=== PATIENT | male | born 1970 ===

== ENCOUNTER 2021-09-13 09:04 | Outpatient (CLI) | payer OTHER, SELFPAY ==
[2021-09-13 09:50] LABS: SARS-CoV-2 RNA PCR Positive (Negative)
== END 2021-09-13 09:05 | disposition home or self-care (01) ==
PROVIDERS: PCP Family Medicine; Visit Provider Nurse Practitioner Family
DX: U07.1 COVID-19 (principal)
CPT/HCPCS: C9803; U0003; U0005

== ENCOUNTER 2021-09-17 12:01 | Outpatient (CLI) | payer OTHER, SELFPAY ==
--- NOTE | 2021-09-17 12:15 | PC.NURSE ---
Pt to room 211 amb. A&Ox3. Regeneron infusion plan of care discussed. Pt read and signed consent form. Oriented to room. Call ho in reach. Reminded to call with needs.
[2021-09-17] MEDS: ACETAMINOPHEN 325 MG TABLET 650 MG PO (12:35)
[2021-09-17 12:36] VITALS: BP 133/88; PULSE 80; RESP 20; TEMP 37.7
[2021-09-17] MEDS: FAMOTIDINE 20 MG TABLET PO (12:36)
[2021-09-17] MEDS: diphenhydrAMINE HCl CAP 25 MG CAPSULE PO (12:36)
--- NOTE | 2021-09-17 14:07 | PC.NURSE ---
Pt has no questions or complaints. Discharged to home amb per self.
== END 2021-09-17 12:02 | disposition home or self-care (01) ==
PROVIDERS: PCP Nurse Practitioner Family; Visit Provider Nurse Practitioner Family
DX: U07.1 COVID-19 (principal)
CPT/HCPCS: A9270; J7050; M0243; Q0244

== ENCOUNTER 2024-04-28 13:00 | Outpatient (RCR) | payer OTHER, SELFPAY ==
--- NOTE | 2024-02-02 07:39 | OPREHPOC ---
Outpatient Therapy Plan of Care This is a Multidisciplinary Plan of Care that may contain components documented by all disciplines (PT, OT, and ST.) PT Problem 1 PT Problem #1 Knowledge Deficit PT Goal 1 Goal Patient to demonstrate independence with HEP Target Visit 4 PT Problem 2 PT Problem #2 Impaired Strength PT Goal 1 Goal Patient to demonstrate R hip and knee strength to 5/5 to improve ability to get up from low sitting surfaces Target Visit 8 PT Problem 3 PT Problem #3 Impaired Functional Mobil PT Goal 1 Goal 1. Patient to deny falls since start of PT POC 2. Patient to complete 5TSTS in <15 seconds to decrease fall risk 3. Patient to score 48/56 on Aly Balance to decrease fall risk 4. Patient to complete 6 min walk test with no seated rest and completion of 1200' Target Visit 8 OT Goal 1 Goal The patient will demonstrate 100% knowledge and return demonstration for UE and visual HEP in order to improve outcomes and function. Target Visit 10 OT Problem 2 OT Problem #2 Impaired Strength OT Goal 1 Goal The patient will demonstrate increased house nurse and pinch strength of R UE by demonstrating >10 lbs of lateral pinch strength and >70 lbs of R house nurse strength in order to improve accuracy with grooming tasks. Target Visit 10 OT Problem 3 OT Problem #3 Impaired Coordination OT Goal 1 Goal The patient will demonstrate increased fine motor coordination by completing 9-hole peg test using R UE in <70 seconds in order to manipulate objects for ADLs for maximum level of independence. Target Visit 10 OT Problem 4 OT Problem #4 Impaired Visual Perceptio OT Goal 1 Goal The patient will demonstrate decreased visual neglect and 100% understanding of use of compensation techniques in order to perform daily tasks safely and decrease risk of injury at home. Target Visit 10 OT Goal 2 Goal The patient will increase executive functioning by performing sample of [place] Making Test Part A in <30 seconds with <2 mistakes in order
--- NOTE | 2024-02-02 07:39 | PTOPEVAL1 ---
Assessment and note entered by Carmelina Godwin DPT Evaluation Information Assessment Status Evaluation Diagnosis impaired balance, R sided weakness Onset 12/14/23 Subjective Information Prior to the stroke on 12-14-23 the patient was working and had no major health concerns or problems. He began slurring his words and was speaking in nonsense words while at work and was sent to the hospital where they discovered a brain bleed. A craniectomy was completed on 12-16-23 and part of the skull was left off at that time. Glioblastoma was discovered and the patient is scheduled to begin radiation and chemo medication on 02-12-24. patient denies falls or pain. he is not using an AD. he was in [facility] rehab for 16 days and had all disciplines. he was able to ambulate and stand for up to 2 hours at a time. he reports some difficulty with getting up from low surfaces. his helps assist patient with providing subjective information. Reported Pain Level Pain Score 0: Self Report Pain Score 0: Self Report Pain Score 0: Self Report Assessment PT Clinical Summary Mr. Burr is a 53 year old male who presents to PT with decreased balance and R sided weakness following stroke and diagnosis of glioblastoma. He presents with decreased R LE strength, impaired balance and impaired gait mechanics impairing his ability to get up from low surfaces, ambulate on uneven surfaces and increases his fall risk with home tasks. He would benefit from skilled PT to address impairments and return to PLOF. Plan of Care Interventions Gait Training,Hot Pack/Cold Pack,Neuro Re- education,Patient/Caregiver Educati,Therapeutic Activities,Therapeutic Exercise PT Services Indicated Yes Treatment Frequency and 2x weekly for 8 visits Duration These treatments will address the objective and functional deficits as defined above. The patient will be advanced safely and appropriately in order for the patient to progress towards his/her prior level of function. Additional exercises will be introduced and as well as a comprehensive home exercise program upon discharge, if needed, ?to ensure carryover of functional gains achieved in the clinic. This treatment plan has been reviewed and agreement upon by the patient.
--- NOTE | 2024-02-02 15:29 | BUSTOPEVAL1 ---
Assessment and note entered by Radhika Hart, HELIOTHERAPIST Evaluation Information Assessment Status Evaluation Diagnosis C71.9 Malignant Neoplasm of brain Subjective Information Patient was referred for an ST evaluation due to concerns with severe Aphasia post CVA with craniectomy. The patient's reported that throughout the patient's hospital stay at [facility] and through rehab at [facility] she has continued to see improvements in his overall language skills. 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 The patient often comprehends spoken language at the more simple level but struggles to communicate verbally or through written means. He often presents with perseveration on previous words/sounds along with frequent jargon, neologisms, semantic and phonemic paraphasia's. He frequently gets frustrated when unable to communicate with his or other communication partners. Reported Pain Level Pain Score 0: Self Report Pain Score 0: Self Report Pain Score 0: Self Report Assessment ST Clinical Summary Patient was referred for an ST evaluation due to significant difficulties with speech after CVA (12-14-23) due to Glioblastoma with craniectomy on . Prior to health event patient was working and was independent with all daily tasks/events with no reported health problems. He participated in therapy while at [facility] and was then transferred to [facility] rehab and completed two weeks of therapy there. The patient's reported that she has seen improvements in the patient's language comprehension skills but he continues to struggle to communicate simple ideas/wants/needs with frequent frustration during communication breakdown. The Mini Mental State Examination MMSE was given with significant impact on results due to patient's aphasia with a score of 2/30. Through language testing patient presented with significant difficulty identifying body parts on self, following complex yes/no questions, following 2 step directions, reading comprehension skills at the single word level and 5-7+ word level, automatic speech tasks, single word and phrase repetition, along with confrontational naming. Currently
--- NOTE | 2024-02-02 15:51 | BUOTOPEVAL ---
Assessment and note entered by Claire Curry, OT Evaluation Information Assessment Status Evaluation Diagnosis Malignant neoplasm of brain, unspecified Onset 12/17/2023 Subjective Information The patient is experiencing expressive aphasia at this time, the patient's spouse assisted patient in answering questions during initial evaluation. They stated that the patient was at work having a normal day when he began to have stroke symptoms. He experienced a brain bleed and had craniotomy. The patient was diagnosed with glioblastoma and will begin chemotherapy and radiation in the beginning of February. He was in inpatient rehab for multiple weeks and has made significant improvement in function. They stated he can dress himself, use the bathroom and performs transfers independently. The patient's stated if he gets tired she will sometimes help with his shoes but he is independent mostly. He is unable to perform IADLs due to visual deficits and cognitive deficits. They stated that he is on anti-anxiety medication due to some episodes at night where he gets upset. The patient stated that he has children and they want to continue to participate in therapy to reach maximum level of independence. They stated that they wanted to work on R UE coordination and visual deficits. The patient stated, Yes, that he has a hard time with memory . Reported Pain Level Pain Score 0: Self Report Pain Score 0: Self Report Pain Score 0: Self Report Pain Score 0: Self Report Assessment OT Clinical Summary The patient is a 53 year old male who was referred to outpatient OT due to malignant neoplasm of brain where the patient required craniotomy, the patient wears a protective helmet at all times. The patient requires skilled OT to address fine motor coordination, visual neglect, and executive functioning needed to engage in meaningful activity, communicate with family, and engage in ADLs safely. The patient requires skilled OT to address deficits and increase independence and safety at home. Plan of Care Interventions Therapeutic Exercise,Neuro Re-education, Therapeutic Activities,Cognitive Function,Self- Care/Home Management OT Services Indicated Y
--- NOTE | 2024-02-18 13:20 | PCPTNOTE ---
Cancelled PT session this afternoon. Patient's reports he has another appointment.
--- NOTE | 2024-02-24 10:25 | PCPTNOTE ---
Cancelled session today. Patient's reports he did not sleep well last night, and is taking the day off of therapy.
--- NOTE | 2024-02-25 13:01 | PCSTNOTE ---
Patient's called and cancelled ST appointment this date due to patient experiencing extreme fatigue after chemo and radiation treatments.
--- NOTE | 2024-03-08 17:10 | PCPTNOTE ---
Patient called & cancelled scheduled appointment this date due to [other medical treatment today]
--- NOTE | 2024-03-11 14:07 | OPREHPOC ---
Outpatient Therapy Plan of Care This is a Multidisciplinary Plan of Care that may contain components documented by all disciplines (PT, OT, and ST.) PT Problem 1 PT Problem #1 Knowledge Deficit PT Goal 1 Goal Patient to demonstrate independence with HEP Target Visit 4 Progress Partially Met Comment continue PT Problem 2 PT Problem #2 Impaired Strength PT Goal 1 Goal Patient to demonstrate R hip and knee strength to 5/5 to improve ability to get up from low sitting surfaces Target Visit 8 Progress Partially Met Comment continue PT Problem 3 PT Problem #3 Impaired Functional Mobil PT Goal 1 Goal 1. Patient to deny falls since start of PT POC - met 2. Patient to complete 5TSTS in <15 seconds to decrease fall risk -met 3. Patient to score 48/56 on Aly Balance to decrease fall risk -not met 4. Patient to complete 6 min walk test with no seated rest and completion of 1200' -met Target Visit 8 Progress Partially Met Comment continue OT Problem 1 OT Problem #1 Knowledge Deficit OT Goal 1 Goal The patient will demonstrate 100% knowledge and return demonstration for UE and visual HEP in order to improve outcomes and function. Target Visit 10 OT Problem 2 OT Problem #2 Impaired Strength OT Goal 1 Goal The patient will demonstrate increased welder apprentice and pinch strength of R UE by demonstrating >10 lbs of lateral pinch strength and >70 lbs of R welder apprentice strength in order to improve accuracy with grooming tasks. Target Visit 10 OT Problem 3 OT Problem #3 Impaired Coordination OT Goal 1 Goal The patient will demonstrate increased fine motor coordination by completing 9-hole peg test using R UE in <70 seconds in order to manipulate objects for ADLs for maximum level of independence. Target Visit 10 OT Problem 4 OT Problem #4 Impaired Visual Perceptio
--- NOTE | 2024-03-11 14:07 | PTOPPROG ---
Assessment and note entered by Janet Sanford, PT Evaluation Information Assessment Status Progress Diagnosis impaired balance, R sided weakness Onset 12/14/23 Subjective Information Ariel denies pain and denies falls. He feels PT is helping him but he is still weak. Assessment PT Clinical Summary Ariel Burr has completed 10 skilled PT visits. He denies pain or falls since initiating PT. He does feel weak. He demonstrates improved balance and strength however he continues to have deficits in right LE strength, dynamic balance, and gait. He is still a moderate fall risk per standard balance tests. He will continue to benefit from skilled PT to further address these limitations. Plan of Care Interventions Gait Training,Neuro Re-education,Patient/Caregiver Educati,Therapeutic Activities,Therapeutic Exercise PT Services Indicated Yes Treatment Frequency and 2 times a week for 4 visits Duration These treatments will address the objective and functional deficits as defined above. The patient will be advanced safely and appropriately in order for the patient to progress towards his/her prior level of function. Additional exercises will be introduced and as well as a comprehensive home exercise program upon discharge, if needed, ?to ensure carryover of functional gains achieved in the clinic. This treatment plan has been reviewed and agreement upon by the patient.
--- NOTE | 2024-03-15 12:33 | BUSTOPEVAL1 ---
Assessment and note entered by Radhika Hart, MANAGER REGISTRATION Evaluation Information Assessment Status Progress Diagnosis C71.9 Malignant Neoplasm of brain Subjective Information Patient was referred for an ST evaluation due to concerns with severe Aphasia post CVA with craniectomy. The patient's reported that throughout the patient's hospital stay at [facility] and through rehab at [facility] she has continued to see improvements in his overall language skills. 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 The patient often comprehends spoken language at the more simple level but struggles to communicate verbally or through written means. He often presents with perseveration on previous words/sounds along with frequent jargon, neologisms, semantic and phonemic paraphasia's. He frequently gets frustrated when unable to communicate with his or other communication partners. The patient has completed a total of [address] treatment sessions with improvement noted in single syllable repetition, body part and item identification, yes/no questions, 2 step directions, single word comprehension skills and some automatic speech tasks. Reported Pain Level Pain Score 0: Self Report Pain Score 0: Self Report Pain Score 0: Self Report Pain Score 0: Self Report Pain Score 0: Self Report Pain Score 0: Self Report Pain Score 0: Self Report Pain Score 0: Self Report Pain Score 0: Self Report Pain Score 0: Self Report Pain Score 0: Self Report Pain Score 0: Self Report Pain Score 0: Self Report Pain Score 0: Self Report Pain Score 0: Self Report Pain Score 0: Self Report Pain Score 0: Self Report Pain Score 0: Self Report Pain Score 0: Self Report Pain Score 0: Self Report Pain Score 0: Self Report
--- NOTE | 2024-03-18 14:11 | PCPTNOTE ---
Patient cancelled scheduled appointment this date due to [not feeling well.]
--- NOTE | 2024-03-25 16:54 | PCPTNOTE ---
I reviewed the License Pending Therapist's documentation and agree with the findings.
--- NOTE | 2024-03-30 16:36 | PCPTNOTE ---
I reviewed the License Pending Therapist's documentation and agree with the findings.
--- NOTE | 2024-03-31 17:11 | PCPTNOTE ---
I reviewed the License Pending Therapist's documentation and agree with the findings. -Janet Sanford, PT
--- NOTE | 2024-04-04 16:08 | PCPTNOTE ---
On 04/04/24, the license pending INSTALLATION TECHNICIAN, [May Downs ], provided care and completed [facility] documentation on this patient. I have reviewed the license pending INSTALLATION TECHNICIAN's documentation and agree with the findings.
--- NOTE | 2024-04-07 15:25 | BUOTOPEVAL ---
Assessment and note entered by Claire Curry, OT Evaluation Information Assessment Status Progress - Pt Not Present Diagnosis Malignant neoplasm of brain, unspecified Onset 12/17/2023 Subjective Information . Reported Pain Level Pain Score 0: Self Report Pain Score 0: Self Report Pain Score 0: Self Report Pain Score 0: Self Report Pain Score 0: Self Report Pain Score 0: Self Report Pain Score 0: Self Report Pain Score 0: Self Report Pain Score 0: Self Report Pain Score 0: Self Report Pain Score 0: Self Report Pain Score 0: Self Report Pain Score 0: Self Report Pain Score 0: Self Report Pain Score 0: Self Report Pain Score 0: Self Report Pain Score 0: Self Report Pain Score 0: Self Report Pain Score 0: Self Report Pain Score 0: Self Report Pain Score 0: Self Report Pain Score 0: Self Report Pain Score 0: Self Report Pain Score 0: Self Report Pain Score 0: Self Report Pain Score 0: Self Report Pain Score 0: Self Report Pain Score 0: Self Report Pain Score 0: Self Report Pain Score 0: Self Report Pain Score 0: Self Report Pain Score 0: Self Report Pain Score 0: Self Report Pain Score 0: Self Report Pain Score 0: Self Report Pain Score 0: Self Report Pain Score 0: Self Report Pain Score 0: Self Report Pain Score 0: Self Report Pain Score 0: Self Report Pain Score 0: Self Report Assessment OT Clinical Summary Th
--- NOTE | 2024-04-11 11:33 | PCSTNOTE ---
Patient's appointment was cancelled this date due to insurance denial to cover more visits. Seeking out advice regarding whether or not patient can be treated through self pay or other options.
--- NOTE | 2024-04-19 15:55 | PCSTNOTE ---
Appointment cancelled for this date due to paying out of pocket and limited length of time for session. Patient is scheduled to be seen next week. Activities sent home for the patient to target.
--- NOTE | 2024-04-21 10:47 | PCPTNOTE ---
Patient called & cancelled scheduled appointment this date due to [patient not feeling well]
--- NOTE | 2024-05-05 12:35 | PCSTNOTE ---
This treatment is being continued on visit number [id number]. Please see documentation on both accounts to view progress. Completed interventions, outcomes, and problems have been marked as Inactive to facilitate the copying of the Care plan routine for recurring accounts.
== END 2024-04-28 20:00 | disposition still patient (30) ==
LOC: CHSST 13:00
PROVIDERS: PCP Family Medicine; Visit Provider Family Medicine
DX: C71.9 Malignant neoplasm of brain, unspecified (principal)
CPT/HCPCS: 92507; 92523; 96125; 97110; 97112; 97129; 97130; 97162; 97167; 97530; 97750

== ENCOUNTER 2024-05-28 12:50 | Emergency (ER) | payer OTHER, SELFPAY ==
--- NOTE | ~2024-05-28 | CT_ITS ---
EXAMINATION: CT brain wo con DATE: 05/28/2024 13:51 INDICATION: Retro-orbital orbital headache, left for one day. Glioblastoma. TECHNIQUE: Computed tomography (CT) of the head was performed without intravenous contrast. The mA wa s adjusted according to patient size. Iterative reconstruction technique was employed. Exam dose: 68 1.00 mGy-cm total exam DLP. COMPARISON: None available FINDINGS: Status post left craniotomy, with underlying likely postsurgical encephalomalacia and ex va cuo dilatation of the left lateral ventricle and left occipital horn. Residual or recurrent malignancy is not definitively excluded on this limited noncontrast examination . MRI of the brain would be more optimal for such purpose. No obvious intracranial mass lesion or hemorrhage or midline shift or mass effect is evident given th e previous discussion of limitation of this noncontrast examination. No subdural or epidural hematoma is evident. No orbital mass lesion is evident. There is soft tissue opacification of posterior ethmoid air cells bilaterally, but the included paran nitin sinuses and mastoids air cells are otherwise unremarkable. No fracture or bone destruction of the cranial vault is evident. Left craniotomy bone flap is secured by plates and screws. IMPRESSION: Status post left craniotomy; left encephalomalacia likely related to resection of prior reported glioblastoma. Residual or recurrent malignancy is not definitively excluded on this limited noncontrast examination No acute intracranial finding is noted Reviewed, dictated and finalized at [facility]. Reviewed, dictated and finalized at [facility]. IMPRESSION: Status post left craniotomy; left encephalomalacia likely related to resection of prior reported glioblastoma. Residual or recurrent malignancy is not definitively excluded on this limited n oncontrast examination No acute intracranial finding is noted
[2024-05-28 12:52] VITALS: BP 119/84; PULSE 64; RESP 22; TEMP 36.2; O2SAT 97
[2024-05-28 13:47] LABS: Basophils Absolute Auto 0.03 K/mm3 (0.00-0.10); Basophils Percent Auto 0.4 % (0.0-1.0); Eosinophils Absolute Auto 0.05 K/mm3 (0.02-0.50); Eosinophils Percent Auto 0.7 % (1.0-6.0); Hemoglobin 14.6 g/dL (14.0-18.0); Immature Granulocyte Absolute 0.03 K/mm3 (0.00-0.00); Immature Granulocyte Percent A 0.4 % (0.0-0.0); Lymphocytes Absolute Auto 1.09 K/mm3 (1.10-4.50); Lymphocytes Percent Auto 15.8 % (18.0-42.0); Mean Corpuscular HGB Conc 32.4 g/dL (32-36); Mean Corpuscular Hemoglobin 27.3 pg (27.0-31.0); Mean Corpuscular Volume 84.3 fL (78.0-102.0); Mean Platelet Volume 9.1 fl (8.7-11.0); Monocytes Absolute Auto 0.39 K/mm3 (0.10-0.90); Monocytes Percent Auto 5.7 % (2.0-11.0); Neutrophils Absolute Auto 5.29 K/mm3 (1.70-7.20); Platelet Count Result 247 K/mm3 (150-420); Red Blood Count 5.34 M/mm3 (4.70-6.10); Red Cell Distribution Width 14.7 % (11.6-14.4); White Blood Count 6.9 K/mm3 (4.8-10.8)
[2024-05-28 14:03] LABS: Alanine Aminotransferase 17 U/L (16-63); Albumin Level 3.7 g/dL (3.4-5.0); Alkaline Phosphatase 96 U/L (46-116); Anion Gap 12 mmol/L (4-12); Aspartate Amino Transferase 19 U/L (15-37); Bilirubin,Total 0.5 mg/dL (0.00-1.00); Blood Urea Nitrogen 12 mg/dL (7-18); Calcium 9.1 mg/dL (8.5-10.1); Carbon Dioxide 25 mmol/L (21-32); Chloride 101 mmol/L (98-108); Estimated CRCL calculation 165 ml/min; Estimated Glomerular Filt Rate > 60; Glucose 103 mg/dL (70-99); Osmolality Calculated 285 mOsm/kg (285-295); Potassium 3.5 mmol/L (3.5-5.1); Sodium 138 mmol/L (136-145); Total Protein 7.5 g/dL (6.4-8.2)
--- NOTE | 2024-05-28 14:29 | ED.HA ---
HPI - Headache General Chief Complaint: Headache Stated Complaint: pain behind LF. 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 He is receiving chemo and radiation. Recent scans were reported to not show any signs of residual disease. Patient presents the emergency department with a history of worsening left-sided headache behind his left eye. The symptoms have been worse over the past 48 hours and refractory to Tylenol at home [place]. Patient is presenting with his with concern that there was an acute intracranial process in play. Patient has aphasia and apraxia at baseline now. He has mild right upper extremity deficits at baseline. Reports mild decrease in p.o. intake past 48 hours. Remainder of ROS was negative for fever, chills, nausea, vomiting, vision changes, chest pain, sob, abdominal pain, bladder, or bowel habits. Related Data Home Medications Medication Instructions Recorded Confirmed Lactobacillus acidophilus 1 tablet PO DAILY 01/26/24 04/12/24 (Acidophilus chewable tablet) ondansetron 8 mg disintegrating 8 mg PO Q8H 02/10/24 04/12/24 tablet alprazolam 1 mg tablet 0.5 mg PO BID PRN anxiety 05/28/24 levetiracetam 750 mg tablet 1,500 mg PO BID 05/28/24 Allergies Allergy/AdvReac Type Severity Reaction Status Date / Time apixaban [From Eliquis] AdvReac Severe Headaches Verified 02/10/24 07:33 [facility] Past Medical History Medical History Overweight Surgical History Surgical History No history of previous surgery Social History Social History Smoking status: Never smoker Alcohol intake: current Drinks per week: 3 Substance use: never Living arrangements: with family Additional living arrangements comments: . 2 Children. Occupation/Education: occupation Additional occupation/education comments: Employed at [employer]. Exam Narrative: GEN: Awake, alert. Aphasia. No apparent distress. HEENT: No rhinorrhea noted, mucous membranes moist. No scleral icterus or conjunctival injection. CV: Normal rate, regular rhythm, S1S2 no M/G/R. 2+ distal pulses all extremities. No peripheral edema noted. PULM: Non-labored respiration. Clear to auscultation bilaterally. No wheezes, rales, rhonchi. GI: Abdomen soft, non -tender to palpation. No rigidity, distention or guarding.? NEURO: Slow gait. Aphasic and apraxic. Well-healed craniotomy scar on the left. Movement deficits on the right upper extremity. Course Vital Signs Vital signs: Vital Signs Temperature 36.2 C L 05/28/24 12:52 Pulse Rate 64 05/28/24 12:52 Respiratory Rate 22 H 05/28/24 12:52 Blood Pressure 119/84 05/28/24 12:52 Pulse Oximetry 97 05/28/24 12:52 Oxygen Delivery Room Air 05/28/24 12:52 Temperature 36.2 C L 05/28/24 12:52 Pulse Rate 64 05/28/24 12:52 Respiratory Rate 22 H 05/28/24 12:52 Blood Pressure 119/84 05/28/24 12:52 Pulse Oximetry 97 05/28/24 12:52 Oxygen Delivery Room Air 05/28/24 12:52 MDM - Headache MDM Narrative Medical decision making narrative: Patient was placed in Room #:?2 Independent Historian: Patient's External Source Review: medical records Differential diagnosis includes but not limited to:? chronic neurologic deficits verses acute intracranial process including bleed or infection. Medications: Home medications Independently Interpreted by me: labs Medications, treatment, ED course: lab work and monitoring Social situation impacting patients care: lives with his who is his primary caregiver Shared decision making:? discussed results of the CT scan with the patient and his . Discussed th
[2024-05-28 14:55] VITALS: BP 107/79; PULSE 95; RESP 20; TEMP 36.7; O2SAT 98
== END 2024-05-28 14:59 | disposition home or self-care (01) ==
PROVIDERS: Emergency Provider Family Medicine; PCP Family Medicine
DX: R51.9 Headache, unspecified (principal); Z86.73 Personal history of transient ischemic attack (TIA), and cerebral infarction without residual deficits
CPT/HCPCS: 36415; 70450; 80053; 85025; 99284

== ENCOUNTER 2024-08-18 11:00 | Outpatient (RCR) | payer OTHER, SELFPAY ==
--- NOTE | 2024-05-31 14:51 | STOPPROG ---
Addendum entered by EDDI Lopez 06/20/24 12:13: report was completed on 05/23/2024 Original Note: Assessment and note entered by EDDI Lopez Evaluation Information Assessment Status Progress Diagnosis C71.9 Malignant Neoplasm of brain Onset 12-14-23 Subjective Information Patient was referred for an ST evaluation due to concerns with severe Aphasia post CVA with craniectomy with 9 sessions completed since the previous progress report written on 03-15-24. The patient recently had a cranioplasty to replace skull that was removed during craniectomy which was completed on 05-02-24. The patient was not seen for skilled ST treatment for 3 weeks due to recovering from cranioplasty. 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 The patient often comprehends spoken language at the more simple level but struggles to communicate verbally or through written means. He often presents with perseveration on previous words/sounds along with frequent jargon, neologisms, semantic and phonemic paraphasia's. He frequently gets frustrated when unable to communicate with his or other communication partners. Assessment ST Clinical Summary Patient was referred for an ST evaluation due to significant difficulties with speech after CVA (12-14-23) due to Glioblastoma with craniectomy on and cranioplasty to replace skulls on 05-02-24. Prior to health event patient was working and was independent with all daily tasks/events with no reported health problems. He had no difficulty with speech/language skills and completed all tasks related to communication independently. He participated in therapy while at [facility] and was then transferred to [facility] rehab and completed two weeks of therapy there. The patient underwent chemo and radiation treatment and will completed the 6 weeks of treatment in the middle of March. The patient's daughter reported that she has seen improvements in the patient's language comprehension skills but he continues to struggle to communicate simple ideas/wants/needs with frequent frustration due to communication breakdown. The patient has completed a total of 9 skilled speech therapy session since the previous progress report written on 03-15-24. Testing was completed throughout the session this date and patient presented with improvements in various areas of auditory comprehension, reading comprehension and verbal expression along with increased difficulties in some areas. These increased difficulties could be due to recent surgery on 05-02-24. Through testing this date the patient has shown improvements in moderate and complex yes/no questions, 2 step directions, simple paragraph retention, single word reading comprehension, automatic cued speech, open ended cued speech, along with an improvement in speaking at the simple level through cues for current topic being discussed. The patient continues to show difficulty in body part identification, 3 step directions, complex directives, moderate/ complex paragraph retention, reading comprehension at the 3-4, 5-7 and 8-10 word level, automatic speech, single word repetition, along with phrase and sentence repetition, confrontational naming, sentence formation and divergent naming which all impact the patient's ability to communicate overall safety/health concerns, want/needs/ideas without extensive assistance resulting in frequent frustration with communication breakdowns. The patient often comprehends spoken language at the more simple level but struggles to communicate verbally or through written means. He often presents with perseveration on previous words/ sounds along with frequent jargon, neologisms, semantic and phonemic paraphasia's. This impacts the patient's overall quality of life greatly along with a severe impact on the patient's ability to communicate wants/needs/ideas and medical information/feelings. Recommendation for skilled ST treatment to continue to target aphasia R47.01 as a result from C71.9 and I63.[address] to target expressive and receptive language skills, and auditory comprehension skills to improve his ability to communicate and attempt to return to prior level of function with least amount of assistance. Recommendation for ST 1x/week for 10 sessions. Plan of Care Interventions Treatment of Speech,Treatment of Language, Treatment for Cognitive F ST Services Indicated Yes Treatment Frequency and 1x/week for 10 sessions Duration These treatments will address the objective and functional deficits as defined above. The patient will be advanced safely and appropriately in order for the patient to progress towards his/her prior level of function. Additional exercises will be introduced and as well as a comprehensive home exercise program upon discharge, if needed, ?to ensure carryover of functional gains achieved in the clinic. This treatment plan has been reviewed and agreement upon by the patient.
== END 2024-08-21 23:59 | disposition home or self-care (01) ==
LOC: CHSST 11:00
PROVIDERS: PCP Family Medicine; Visit Provider Family Medicine
DX: C71.9 Malignant neoplasm of brain, unspecified (principal); I69.320 Aphasia following cerebral infarction
CPT/HCPCS: 92507; 97110

== ENCOUNTER 2024-09-01 10:47 | Outpatient (RCR) | payer OTHER, SELFPAY | END 2024-11-30 23:59 | disposition home or self-care (01) | LOC: CHSST 10:47 | PROVIDERS: PCP Family Medicine; Visit Provider Family Medicine | DX: C71.9 Malignant neoplasm of brain, unspecified (principal) | CPT/HCPCS: 99199 ==

== ENCOUNTER 2024-09-15 10:45 | Outpatient (RCR) | payer OTHER, SELFPAY ==
--- NOTE | 2024-05-05 12:36 | PCSTNOTE ---
The treatment documented on this account is a continuation of the treatment documented on visit number [id number]. Please see documentation on both accounts to view progress. The Plan of Care has been transitioned and updated within the new A#. I have addressed and agree with the discipline specific Problems, Interventions, and Goals for the current certification period. Completed interventions, outcomes, and problems have been marked as Inactive to facilitate the copying of the Care plan routine for recurring accounts.
--- NOTE | 2024-05-23 12:53 | STOPPROG ---
Addendum entered by EDDI Lopez 06/20/24 12:15: ?note was entered in error on the incorrect account.? ? Original Note: Assessment and note entered by EDDI Lopez Evaluation Information Assessment Status Progress Diagnosis C71.9 Malignant Neoplasm of brain Onset 12-14-23 Subjective Information Patient was referred for an ST evaluation due to concerns with severe Aphasia post CVA with craniectomy with 9 sessions completed since the previous progress report written on 03-15-24. The patient recently had a cranioplasty to replace skull that was removed during craniectomy which was completed on 05-02-24. The patient was not seen for skilled ST treatment for 3 weeks due to recovering from cranioplasty. 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 The patient often comprehends spoken language at the more simple level but struggles to communicate verbally or through written means. He often presents with perseveration on previous words/sounds along with frequent jargon, neologisms, semantic and phonemic paraphasia's. He frequently gets frustrated when unable to communicate with his or other communication partners. Assessment ST Clinical Summary Patient was referred for an ST evaluation due to significant difficulties with speech after CVA (12-14-23) due to Glioblastoma with craniectomy on and cranioplasty to replace skulls on 05-02-24. Prior to health event patient was working and was independent with all daily tasks/events with no reported health problems. He had no difficulty with speech/language skills and completed all tasks related to communication independently. He participated in therapy while at [facility] and was then transferred to [facility] rehab and completed two weeks of therapy there. The patient underwent chemo and radiation treatment and will completed the 6 weeks of treatment in the middle of March. The patient's daughter reported that she has seen improvements in the patient's language comprehension skills but he continues to struggle to communicate simple ideas/wants/needs with frequent frustration due to communication breakdown. The patient has completed a total of 9 skilled speech therapy session since the previous progress report written on 03-15-24. Testing was completed throughout the session this date and patient presented with improvements in various areas of auditory comprehension, reading comprehension and verbal expression along with increased difficulties in some areas. These increased difficulties could be due to recent surgery on 05-02-24. Through testing this date the patient has shown improvements in moderate and complex yes/no questions, 2 step directions, simple paragraph retention, single word reading comprehension, automatic cued speech, open ended cued speech, along with an improvement in speaking at the simple level through cues for current topic being discussed. The patient continues to show difficulty in body part identification, 3 step directions, complex directives, moderate/ complex paragraph retention, reading comprehension at the 3-4, 5-7 and 8-10 word level, automatic speech, single word repetition, along with phrase and sentence repetition, confrontational naming, sentence formation and divergent naming which all impact the patient's ability to communicate overall safety/health concerns, want/needs/ideas without extensive assistance resulting in frequent frustration with communication breakdowns. The patient often comprehends spoken language at the more simple level but struggles to communicate verbally or through written means. He often presents with perseveration on previous words/ sounds along with frequent jargon, neologisms, semantic and phonemic paraphasia's. This impacts the patient's overall quality of life greatly along with a severe impact on the patient's ability to communicate wants/needs/ideas and medical information/feelings. Recommendation for skilled ST treatment to continue to target aphasia R47.01 as a result from C71.9 and I63.9 CVA[address] Recommendation for ST to target expressive and receptive language skills, and auditory comprehension skills to improve his ability to communicate and attempt to return to prior level of function with least amount of assistance. Recommendation for ST 1x/week for 10 sessions. Plan of Care Interventions Treatment of Speech,Treatment of Language, Treatment for Cognitive F ST Services Indicated Yes Treatment Frequency and 1x/week for 10 sessions Duration These treatments will address the objective and functional deficits as defined above. The patient will be advanced safely and appropriately in order for the patient to progress towards his/her prior level of function. Additional exercises will be introduced and as well as a comprehensive home exercise program upon discharge, if needed, ?to ensure carryover of functional gains achieved in the clinic. This treatment plan has been reviewed and agreement upon by the patient.
--- NOTE | 2024-06-14 16:38 | PCSTNOTE ---
Patient cancelled skilled ST session today due to taking several medications including his chemo medication and this impacted his mental abilities. He was extremely fatigued and unbalanced when he arrived for treatment. decided to cancel due to patient status.
--- NOTE | 2024-07-28 11:36 | PCSTNOTE ---
Patient called & cancelled scheduled appointment this date due to recent chemo round completion and feeling bad as a result.
--- NOTE | 2024-08-11 12:58 | PCSTNOTE ---
Patient called & cancelled scheduled appointment this date due to continued fatigue from recent chemo treatment.
--- NOTE | 2024-08-23 18:38 | STOPPROG ---
Assessment and note entered by Radhika Hart, BUSINESS INFORMATION ANALYST Evaluation Information Assessment Status Progress - Pt Not Present Diagnosis C71.9 Malignant Neoplasm of brain Onset 12-14-23 Subjective Information Patient was referred for an ST evaluation due to concerns with severe Aphasia post CVA with craniectomy. The patient's reported that throughout the patient's hospital stay at [facility] and through rehab at [facility] she has continued to see improvements in his overall language skills. 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 The patient often comprehends spoken language at the more simple level but struggles to communicate verbally or through written means. He often presents with perseveration on previous words/sounds along with frequent jargon, neologisms, semantic and phonemic paraphasia's. He frequently gets frustrated when unable to communicate with his or other communication partners. The patient has completed a total of [address] treatment sessions since the previous progress report written on 05-23-24 with improvement noted in complex yes/no questions , reading comprehension at the 7+ word level through two visual choices, item naming with cues (phonemic cues for carrier phrases), and word imitation. Within the past month the patient has began the use of a cap for treatment of cancer along with chemo medication recently that has impacted his ability to participate due to extreme fatigue. Assessment ST Clinical Summary Patient was referred for an ST evaluation due to significant difficulties with speech after CVA (12-14-23) due to Glioblastoma with craniectomy on . Prior to health event patient was working and was independent with all daily tasks/events with no reported health problems. He had no difficulty with speech/language skills and completed all tasks related to communication independently. He participated in therapy while at [facility] and was then transferred to [facility] rehab and completed two weeks of therapy there. The patient completed chemo and radiation treatment in the middle of March of 2024. The patient began use of a cap to treat cancer that he wears continuously and also has recently went through a round of chemo medication that has impacted his overall level of energy and ability to participate. The patient's reported that she has seen improvements in the patient's language comprehension skills but he continues to struggle to communicate simple ideas/wants/needs with frequent frustration during communication breakdown. The patient has completed a total of 9 skilled speech therapy session since the previous progress report written on 05-23-24. The patient has demonstrated improvements in item identification, answering yes/no questions at moderate/complex level difficulty, following two step directions, 5-7 word comprehension skills, item naming through use of phonemic cues and carrier phrases, automatic cued speech, and imitation at the simple phrase level. Over the past 3 months the patient has participated in use of various language apps frequently throughout the week to continue to target language skills. The patient continues to demonstrate significant difficulty using words to communicate resulting in frequent frustration with communication breakdowns. This impacts the patient's overall quality of life greatly along with a severe impact on the patient's ability to communicate wants/ needs/ideas and medical information/feelings. Recommendation for skilled ST treatment to continue to target aphasia R47.01, Apraxia of speech R48.2, as a result from C71.9 and I63.9 CVA . Recommendation for ST to target expressive and receptive language skills, apraxia of speech, and auditory comprehension skills to improve his ability to communicate and attempt to return to prior level of function with least amount of assistance. Recommendation for ST 1x/week for 10 sessions. Plan of Care Interventions Treatment of Speech,Treatment of Language, Treatment for Cognitive F ST Services Indicated Yes Treatment Frequency and 1x/week for 10 sessions Duration These treatments will address the objective and functional deficits as defined above. The patient will be advanced safely and appropriately in order for the patient to progress towards his/her prior level of function. Additional exercises will be introduced and as well as a comprehensive home exercise program upon discharge, if needed, ?to ensure carryover of functional gains achieved in the clinic. This treatment plan has been reviewed and agreement upon by the patient.
--- NOTE | 2024-09-06 12:20 | PCSTNOTE ---
Patient's called & cancelled scheduled appointment this date due to patient being extremely fatigued due to medication taken.
--- NOTE | 2024-09-20 08:59 | PCSTNOTE ---
This treatment is being continued on visit number [id number]. Please see documentation on both accounts to view progress. Completed interventions, outcomes, and problems have been marked as Inactive to facilitate the copying of the Care plan routine for recurring accounts.
== END 2024-09-19 23:59 | disposition home or self-care (01) ==
LOC: CHSST 10:45
PROVIDERS: PCP Family Medicine; Visit Provider Family Medicine
DX: C71.9 Malignant neoplasm of brain, unspecified (principal)
CPT/HCPCS: 92507

== ENCOUNTER 2024-10-07 10:45 | Outpatient (RCR) | payer OTHER, SELFPAY ==
--- NOTE | 2024-09-20 09:02 | PCSTNOTE ---
The treatment documented on this account is a continuation of the treatment documented on visit number [id number]. Please see documentation on both accounts to view progress. The Plan of Care has been transitioned and updated within the new A#. I have addressed and agree with the discipline specific Problems, Interventions, and Goals for the current certification period. Completed interventions, outcomes, and problems have been marked as Inactive to facilitate the copying of the Care plan routine for recurring accounts.
--- NOTE | 2024-10-14 11:40 | PCSTNOTE ---
Patient's called & cancelled scheduled appointment this date due to patient being extremely fatigued due to recent chemo medication. Patient is scheduled to be seen next .
--- NOTE | 2024-10-20 13:43 | PCSTNOTE ---
This treatment is being continued on visit number [id number]. Please see documentation on both accounts to view progress. Completed interventions, outcomes, and problems have been marked as Inactive to facilitate the copying of the Care plan routine for recurring accounts. Patient was recently seen for speech therapy through self pay due to insurance unable to continue covering costs. Patient now will be seen through new number due to new insurance with ST services covered.
== END 2024-10-20 12:13 | disposition still patient (30) ==
LOC: CHSST 10:45
PROVIDERS: PCP Family Medicine; Visit Provider Family Medicine
DX: C71.9 Malignant neoplasm of brain, unspecified (principal)
CPT/HCPCS: 92507

== ENCOUNTER 2025-01-05 10:45 | Outpatient (RCR) | payer OTHER, SELFPAY ==
--- NOTE | 2024-10-20 13:49 | PCSTNOTE ---
The treatment documented on this account is a continuation of the treatment documented on visit number [id number]. Please see documentation on both accounts to view progress. The Plan of Care has been transitioned and updated within the new A#. I have addressed and agree with the discipline specific Problems, Interventions, and Goals for the current certification period. Completed interventions, outcomes, and problems have been marked as Inactive to facilitate the copying of the Care plan routine for recurring accounts. Patient was recently seen for speech therapy through self pay due to insurance unable to continue covering costs and these sessions were documented on number [id number]. Patient now will be seen through this current number due to new insurance with ST services covered.
--- NOTE | 2024-11-17 12:53 | STOPPROG ---
Assessment and note entered by Radhika Hart, WHEEL TRUER Evaluation Information Assessment Status Progress Diagnosis C71.9 Malignant Neoplasm of brain Onset 12-14-23 Subjective Information Patient was referred for an ST evaluation due to concerns with severe Aphasia post CVA with craniectomy. The patient's reported that throughout the patient's hospital stay at [facility] [place] and through rehab at [facility] she has continued to see improvements in his overall language skills. 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 The patient often comprehends spoken language at the more simple level but struggles to communicate verbally or through written means. He often presents with perseveration on previous words/sounds along with frequent jargon, neologisms, semantic and phonemic paraphasia's. He frequently gets frustrated when unable to communicate with his or other communication partners. Over the course of the past several months the patient has been utilizing an application called Aphasia Therapy in his iPad at home with noted improvements. The patient has completed a total of [address] treatment sessions since the previous progress report written on 08-23-24. Goals recently have been met for moderate/complex yes/no questions, following two step directions and visual scanning tasks to improve visual spatial skills. Improvements over the past few sessions have been noted in item naming with less cues, reading comprehension skills, open ended cued speech and simple phrase imitation skills. Patient continues to struggle to produce words and phrases independently with continued breakdown in communication skills with familiar and unfamiliar listeners. Recommendation for continued skilled ST treatment at this time. Assessment ST Clinical Summary Patient was referred for an ST evaluation due to significant difficulties with speech after CVA (12-14-23) due to Glioblastoma with craniectomy on . Prior to health event patient was working and was independent with all daily tasks/events with no reported health problems. He had no difficulty with speech/language skills and completed all tasks related to communication independently. He participated in therapy while at [facility] and was then transferred to [facility] rehab and completed two weeks of therapy there. The patient completed chemo and radiation treatment in the middle of March of 2024. The patient began use of a cap to treat cancer that he wears continuously and also has recently went through a round of chemo medication that has impacted his overall level of energy and ability to participate intermittently. The patient's reported that she has seen improvements in the patient's language comprehension skills but he continues to struggle to communicate simple ideas/wants/needs with frequent frustration during communication breakdown. The patient has completed a total of 10 skilled speech therapy session since the previous progress report written on 08-23-24. The patient has met goals for auditory comprehension skills within answering complex yes/no questions and following two step directions. The patient also met goal for visual spatial skills through visual scanning. Through language testing the patient has shown improvements in; areas of verbal expression including single word imitation, automatic cued speech, wh questions, and confrontational naming along with areas of reading comprehension including number recognition and 3-4 word comprehension skills. Over the past several months the patient has participated in use of Aphasia Therapy application on iPad daily to continue to target overall language skills. The patient continues to demonstrate significant difficulty using words to communicate resulting in frequent frustration with communication breakdowns. This impacts the patient's overall quality of life greatly along with a severe impact on the patient' s ability to communicate wants/needs/ideas and medical information/feelings. Recommendation for skilled ST treatment to continue to target aphasia R47.01, Apraxia of speech R48.2, as a result from C71.9 and I63.9 CVA[address] Recommendation for ST to target expressive and receptive language skills, apraxia of speech, and auditory comprehension skills to improve his ability to communicate and attempt to return to prior level of function with least amount of assistance. Recommendation for ST 1x/week for 10 sessions. Plan of Care Interventions Treatment of Speech,Treatment of Language, Treatment for Cognitive Function ST Services Indicated Yes Treatment Frequency and 1x/week for 10 sessions Duration These treatments will address the objective and functional deficits as defined above. The patient will be advanced safely and appropriately in order for the patient to progress towards his/her prior level of function. Additional exercises will be introduced and as well as a comprehensive home exercise program upon discharge, if needed, ?to ensure carryover of functional gains achieved in the clinic. This treatment plan has been reviewed and agreement upon by the patient.
--- NOTE | 2024-11-22 07:55 | BUOTOPEVAL ---
Assessment and note entered by Claire Curry OT Evaluation Information Assessment Status Evaluation Diagnosis Malignant neoplasm of brain, unspecified ICD-10 Condition Codes (OT) Generalized muscle weakness M62.81 Onset 12/2023 Reported Pain Level Pain Score 0: Self Report Pain Score 0: Self Report Pain Score 0: Self Report Pain Score 0: Self Report Pain Score 0: Self Report Pain Score 0: Self Report Pain Score 0: Self Report Assessment OT Clinical Summary The patient is a 54 year old male who was referred to outpatient OT due to glioblastoma. The patient previously demonstrated WNL UE coordination, visual attention, no visual neglect and no issues with proprioception of R UE. The patient now demonstrates moderately impaired visual attention/ visual neglect deficits, moderately impaired fine motor coordination and poor sensation for proprioceptive input of R UE that all affect his ability to clean his home, engage in work activities, and work with his son on their car. Due to time constraints and communication deficits , the patient did not complete all assessment items, to assess at next visit to determine patient's current baseline. The patient requires skilled OT to address these deficits and provide the family with compensatory strategies and activities to engage in at home in order to perform daily activities to improve quality of life and maximize independence and safety. Plan of Care Interventions Therapeutic Exercise,Neuro Re-education, Therapeutic Activities,Cognitive Function,Sensory Integrative Techniques,Self-Care/Home Management OT Services Indicated Yes Treatment Frequency and 1-2x/week for 10 visits. Duration These treatments will address the objective and functional deficits as defined above. The patient will be advanced safely and appropriately in order for the patient to progress towards his/her prior level of function. Additional exercises will be introduced and as well as a comprehensive home exercise program upon discharge, if needed, ?to ensure carryover of functional gains achieved in the clinic. This treatment plan has been reviewed and agreement upon by the patient.
--- NOTE | 2024-11-22 07:56 | OPREHPOC ---
Outpatient Therapy Plan of Care This is a Multidisciplinary Plan of Care that may contain components documented by all disciplines (PT, OT, and ST.) PT Problem 1 PT Problem #1 Knowledge Deficit PT Goal 1 Goal / Goal Update Patient to demonstrate independence with HEP Target Visit 4 Progress Partially Met PT Problem 2 PT Problem #2 Impaired Strength PT Goal 1 Goal / Goal Update Patient to demonstrate R hip and knee strength to 5/5 to improve ability to get up from low sitting surfaces Target Visit 8 Progress Partially Met PT Problem 3 PT Problem #3 Impaired Functional Mobility PT Goal 1 Goal / Goal Update 1. Patient to deny falls since start of PT POC - met 2. Patient to complete 5TSTS in <15 seconds to decrease fall risk -met 3. Patient to score 48/56 on Aly Balance to decrease fall risk -not met 4. Patient to complete 6 min walk test with no seated rest and completion of 1200' -met Target Visit 8 Progress Partially Met OT Problem 1 OT Problem #1 Knowledge Deficit OT Goal 1 Goal / Goal Update The patient will demonstrate 100% knowledge and return demonstration for UE and visual HEP in order to improve outcomes and function. Target Visit 10 Progress Partially Met OT Problem 2 OT Problem #2 Impaired Strength OT Goal 1 Goal / Goal Update The patient will demonstrate compensatory strategies and increased proprioceptive awareness of R UE during functional tasks through patient report or clinical observation for ability to clean his home. Target Visit 10 Progress Not Met OT Problem 3 OT Problem #3 Impaired Coordination OT Goal 1 Goal / Goal Update The patient will demonstrate increased fine motor coordination by completing 9-hole peg test using R UE in <30 seconds in order to manipulate objects for ADLs for maximum level of independence. Target Visit 10 Progress Not Met OT Problem 4 OT Problem #4 Impaired Visual Perception OT Goal 1 Goal / Goal Update The patient will demonstrate decreased visual neglect and 100% understanding of use of compensation techniques in order to perform daily tasks safely and decrease risk of injury at home. Target Visit 10 Progress Partially Met OT Goal 2 Goal / Goal Update The patient will increase executive functioning by performing sample of [place] Making Test Part A in <30 seconds with <2 mistakes in order to perform IADLs with increased safety. Target Visit 10 Progress Not Met OT Problem 5 OT Problem #5 Impaired Strength OT Goal 1 Goal / Goal Update Demonstrate R UE shoulder and elbow strength of 5/ 5 with normal UB endurance needed to perform daily tasks with no signs of fatigue. Target Visit [address] Problem #[address] Goal 1 Goal / Goal Update 1. Patient will participate in home programming to improve carryover/generalization of skills to various environments. -family continues to demonstrated good carryover of tasks to patient's other environments to promote generalization of skills. Target Visit [address] Problem 2 ST Problem #[address] Goal 1 Goal / Goal Update 1. Patient will answer moderate/complex yes/no questions with 80% accuracy and minimal cues. 03-14-24: Continue goal. 90% accuracy with moderate level complexity. To target complex yes/no questions. 08-23-24: Continue goal. targeted through complex comparison questions with 70-90% accuracy and moderate cues. 11-17-24: Goal met with 82% accuracy and minimal/ moderate cues on 10-27-24. 2. Patient will follow 2 step directions with 80% accuracy and minimal cues. 03-14-24: Continue goal. 1 step directions with object manipulation: apple picker book and open it targeted with 90% accuracy. 1 step direction with 2 object manipulation: put the pencil in the cup targeted with 40% accuracy and max cues. 08-23-24: Continue goal. 2 step directions: 60% accuracy with moderate/max cues. 11-17-24: Goal met. 80% accuracy with minimal cues on 09-29-24. Target Visit [address] Problem 3 ST Problem #[address] Goal 1 Goal / Goal Update 1. Patient will complete 2-3 word comprehension tasks with and without pictures with 90% accuracy to improve comprehension skills. 08-23-24: Continue goal. 2-3 word comprehension: 70-90% accuracy with moderate cues. 11-17-24: Continue goal. 2-4 word comprehension: targeted with 70% accuracy and moderate cues. 2. Patient will complete reading comprehension tasks at the 5-7 word level with 90% accuracy and minimal cues. 03-14-24: Continue goal. Not yet targeted at the 5-7 word level. 08-23-24: Continue goal. Comprehension at the 5-7 word level: targeted through selecting the appropriate sentence to match pictures from a field of 2 sentences with 100% accuracy and a field of 3 sentences with 80% accuracy. 11-17-24: Comprehension at the 5-7 word level: targeted through reading sentence and task to select final word to complete sentence with max cues and 60% accuracy. Modified to 2 choices versus 4 choices to improved skills noted. 3. Patient will complete visual scanning tasks to improve visual spatial skills with 90% accuracy and minimal cues. 08-23-24: range of 67-89% accuracy with increased time for task completion. 11-17-24: Goal met with 93% accuracy on 10-20-24. Target Visit [address] Problem 4 ST Problem #[address] Goal 1 Goal / Goal Update 1. Patient will complete automatic speech tasks with 90% accuracy. 03-14-24: Continue goal. targeted through number counting 1-20 with max cues, singing simple songs happy birthday, ABC's and days of the week with moderate/max cues and 50-60% accuracy. 08-23-24: targeted automatic speech phrase completion with single target word with 50-70% accuracy. 11-17-24: Continue goal. Automatic cues speech: targeted through phrase completion with single word with 60% accuracy and moderate cues. 2. Patient will complete open ended cued speech tasks with 90% accuracy and minimal cues. 11-17-24: Continue goal. targeted through sentence completion with 50% accuracy and moderate cues. 3. Patient will name items with 80% accuracy and moderate cues. 03-14-24: Continue goal. targeted through various familiar items with 45% accuracy and moderate+ cues. 08-23-24: Continue goal. targeted through various pictures with use of phonemic cues, semantic cues and carrier phrases with 80% accuracy and max cues . Independently naming pictures targeted with 50% accuracy. 11-17-24: Continue goal. Item naming: targeted with 50% accuracy independently and 80% accuracy with moderate cues. Use of carrier phrases and phonemic cues. Confrontational naming testing completed this date 60% accuracy (previous testing was 30% accuracy). 4. Patient will imitate 3-4 word phrases with 80% accuracy and minimal cues. -not yet targeted due to level of difficulty. 08-23-24: Bi syllabic target words: 70% accuracy through imitation on first attempt and 100% accuracy with moderate cues. 11-17-24: targeted 2 word phrases with 70% accuracy and moderate/max cues. Patient independently imitated 4 phrases accurately without repetition needed. 5. Patient will imitate bisyllabic words with 90% accuracy and minimal cues. 2-6-25: Continue goal. Bisyllabic words: 1st attempt targeted with 70% accuracy and 90% accuracy with moderate cues and repetition. Target Visit 10 Progress Not Met
--- NOTE | 2024-12-29 11:26 | PCSTNOTE ---
Patient's called & cancelled scheduled appointment this date due to round of chemo impacting patient's overall level of energy and ability to participate in skilled ST treatment this date.
--- NOTE | 2025-01-12 10:34 | PCSTNOTE ---
Patient's called & cancelled scheduled appointment this date due to illness.
--- NOTE | 2025-01-19 11:50 | PCSTNOTE ---
This treatment is being continued on visit number [id number]. Please see documentation on both accounts to view progress. Completed interventions, outcomes, and problems have been marked as Inactive to facilitate the copying of the Care plan routine for recurring accounts.
== END 2025-01-18 23:59 | disposition home or self-care (01) ==
LOC: CHSST 10:45
PROVIDERS: PCP Family Medicine; Visit Provider Family Medicine
DX: C71.9 Malignant neoplasm of brain, unspecified (principal)
CPT/HCPCS: 92507; 97110; 97112; 97129; 97130; 97166; 97530

== ENCOUNTER 2025-04-13 10:45 | Outpatient (RCR) | payer OTHER, SELFPAY ==
--- NOTE | 2025-01-19 11:50 | PCSTNOTE ---
The treatment documented on this account is a continuation of the treatment documented on visit number [id number]. Please see documentation on both accounts to view progress. The Plan of Care has been transitioned and updated within the new A#. I have addressed and agree with the discipline specific Problems, Interventions, and Goals for the current certification period. Completed interventions, outcomes, and problems have been marked as Inactive to facilitate the copying of the Care plan routine for recurring accounts.
--- NOTE | 2025-01-26 12:29 | PCSTNOTE ---
Patient's called & cancelled scheduled appointment this date.
--- NOTE | 2025-02-16 11:57 | PCSTNOTE ---
Patient's called & cancelled scheduled appointment this date due to patient not feeling well.
--- NOTE | 2025-02-23 13:53 | STOPPROG ---
Assessment and note entered by Radhika Hart, INFORMATION SYSTEMS SECURITY MANAGER Evaluation Information Assessment Status Progress Diagnosis C71.9 Malignant Neoplasm of brain Onset 12-14-23 Subjective Information Patient was referred for an ST evaluation due to concerns with severe Aphasia post CVA with craniectomy. The patient's reported that throughout the patient's hospital stay at [facility] and through rehab at [facility] she has continued to see improvements in his overall language skills. 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 The patient often comprehends spoken language at the more simple level but struggles to communicate verbally when answer requires increased length over 1-2 words. When patient attempts to have a conversation with others he often gets lost due to; perseveration, semantic and phonemic paraphasia's, neologism, and jargon. This significantly impacts patient's ability to communicate want/needs/ideas resulting in frustration with communication breakdowns. Over the course of the past 9 months the patient has been utilizing an application called Aphasia Therapy on his iPad to target language comprehension, reading comprehension and verbal expression skills. Currently, the patient utilizes this application and recommended numbers application daily while at home to continue to improve overall language skills. The patient has completed a total of [address] treatment sessions since the previous progress report written on 11-17-24. Testing through [facility] Adult Language Evaluation was administered during the session this date with results below. Portions of verbal expression were not completed yet due to time constratins and will be completed in the next session along with MMSE. Recommendation for continued skilled ST treatment at this time. Assessment ST Clinical Summary Patient was referred for an ST evaluation due to significant difficulties with speech after CVA (12-14-23) due to Glioblastoma with craniectomy on . Prior to health event patient was working and was independent with all daily tasks/events with no reported health problems. He had no difficulty with speech/language skills and completed all tasks related to communication independently. He participated in therapy while at [facility] and was then transferred to [facility] rehab and completed two weeks of therapy there. The patient completed chemo and radiation treatment in the middle of March of 2024. The patient began use of a cap to treat cancer that he wears continuously and along with intermittent rounds of chemo medication that has impacted his overall level of energy and ability to participate intermittently. The patient's reported that she has seen improvements in the patient's language comprehension skills but he continues to struggle to communicate simple ideas/wants/needs with frequent frustration during communication breakdown. The patient has completed a total of 9 skilled speech therapy sessions since the previous progress report written on 11-17-24. The patient continues to show progression in all areas of reading comprehension, verbal expression and speech skills. Testing was completed during the session on 02-23-25 with results below: Through the use of the [facility] Adult Language evaluation the patient has shown improvements in; Auditory comprehension-object identification, 2 step directions, complex directions and simple/ moderate complexity paragraph retention skills through the use of yes/no questions versus open ended questions Reading comprehension- letter recognition, single word comprehension, 3-4 and 5-7 word comprehension skills. Verbal expression- single word and phrase repetition, automatic cued speech, open ended cued speech and wh questions. Confrontational naming , object function, divergent naming were not completed due to time constraints and will be completed in the next session. Touch Chat AAC with word power- was introduced through a trial device with INFORMATION SYSTEMS SECURITY MANAGER during the session with agreement in plan to explore for potential supplementation within conversation with others. In the past patient has been resistant to use of an AAC device to communicate but currently seems more open to the idea. Over the past 9 months the patient has participated in use of Aphasia Therapy application on iPad daily to continue to target language comprehension, reading comprehension and verbal expression skills. The patient continues to demonstrate significant difficulty using words in more complex phrases/sentences to communicate wants/needs/ideas resulting in frequent frustration with communication breakdowns. This impacts the patient's overall quality of life greatly along with a severe impact on the patient' s ability to communicate wants/needs/ideas and medical information/feelings. Recommendation for skilled ST treatment to continue to target aphasia R47.01, Apraxia of speech R48.2, as a result from C71.9 and I63.[address] CVA[address] Recommendation for ST to target expressive and receptive language skills, apraxia of speech, and auditory comprehension skills to improve his ability to communicate and attempt to return to prior level of function with least amount of assistance. Recommendation for ST 1x/week for 10 sessions. Plan of Care Interventions Treatment of Speech,Treatment of Language, Treatment for Cognitive Function ST Services Indicated Yes Treatment Frequency and 1x/week for 10 sessions Duration These treatments will address the objective and functional deficits as defined above. The patient will be advanced safely and appropriately in order for the patient to progress towards his/her prior level of function. Additional exercises will be introduced and as well as a comprehensive home exercise program upon discharge, if needed, ?to ensure carryover of functional gains achieved in the clinic. This treatment plan has been reviewed and agreement upon by the patient.
--- NOTE | 2025-02-23 13:53 | OPREHPOC ---
Outpatient Therapy Plan of Care This is a Multidisciplinary Plan of Care that may contain components documented by all disciplines (PT, OT, and ST.) PT Problem 1 PT Problem #1 Knowledge Deficit PT Goal 1 Goal / Goal Update Patient to demonstrate independence with HEP Target Visit 4 Progress Partially Met PT Problem 2 PT Problem #2 Impaired Strength PT Goal 1 Goal / Goal Update Patient to demonstrate R hip and knee strength to 5/5 to improve ability to get up from low sitting surfaces Target Visit 8 Progress Partially Met PT Problem 3 PT Problem #3 Impaired Functional Mobility PT Goal 1 Goal / Goal Update 1. Patient to deny falls since start of PT POC - met 2. Patient to complete 5TSTS in <15 seconds to decrease fall risk -met 3. Patient to score 48/56 on Aly Balance to decrease fall risk -not met 4. Patient to complete 6 min walk test with no seated rest and completion of 1200' -met Target Visit 8 Progress Partially Met OT Problem 1 OT Problem #1 Knowledge Deficit OT Goal 1 Goal / Goal Update The patient will demonstrate 100% knowledge and return demonstration for UE and visual HEP in order to improve outcomes and function. Target Visit 10 Progress Partially Met OT Problem 2 OT Problem #2 Impaired Strength OT Goal 1 Goal / Goal Update The patient will demonstrate compensatory strategies and increased proprioceptive awareness of R UE during functional tasks through patient report or clinical observation for ability to clean his home. Target Visit 10 Progress Not Met OT Problem 3 OT Problem #3 Impaired Coordination OT Goal 1 Goal / Goal Update The patient will demonstrate increased fine motor coordination by completing 9-hole peg test using R UE in <30 seconds in order to manipulate objects for ADLs for maximum level of independence. Target Visit 10 Progress Not Met OT Problem 4 OT Problem #4 Impaired Visual Perception OT Goal 1 Goal / Goal Update The patient will demonstrate decreased visual neglect and 100% understanding of use of compensation techniques in order to perform daily tasks safely and decrease risk of injury at home. Target Visit 10 Progress Partially Met OT Goal 2 Goal / Goal Update The patient will increase executive functioning by performing sample of [place] Making Test Part A in <30 seconds with <2 mistakes in order to perform IADLs with increased safety. Target Visit 10 Progress Not Met OT Problem 5 OT Problem #5 Impaired Strength OT Goal 1 Goal / Goal Update Demonstrate R UE shoulder and elbow strength of 5/ 5 with normal UB endurance needed to perform daily tasks with no signs of fatigue. Target Visit [address] Problem #[address] Goal 1 Goal / Goal Update 1. Patient will participate in home programming to improve carryover/generalization of skills to various environments. -family continues to demonstrated good carryover of tasks to patient's other environments to promote generalization of skills. Target Visit [address] Problem 2 ST Problem #[address] Goal 1 Goal / Goal Update 1. Patient will answer moderate/complex yes/no questions with 80% accuracy and minimal cues. 03-14-24: Continue goal. 90% accuracy with moderate level complexity. To target complex yes/no questions. 08-23-24: Continue goal. targeted through complex comparison questions with 70-90% accuracy and moderate cues. 11-17-24: Goal met with 82% accuracy and minimal/ moderate cues on 10-27-24. 2. Patient will follow 2 step directions with 80% accuracy and minimal cues. 03-14-24: Continue goal. 1 step directions with object manipulation: pickle sorter book and open it targeted with 90% accuracy. 1 step direction with 2 object manipulation: put the pencil in the cup targeted with 40% accuracy and max cues. 08-23-24: Continue goal. 2 step directions: 60% accuracy with moderate/max cues. 11-17-24: Goal met. 80% accuracy with minimal cues on 09-29-24. Target Visit [address] Problem 3 ST Problem #[address] Goal 1 Goal / Goal Update 1. Patient will complete 2-3 word comprehension tasks with and without pictures with 90% accuracy to improve comprehension skills. 08-23-24: Continue goal. 2-3 word comprehension: 70-90% accuracy with moderate cues. 11-17-24: Continue goal. 2-4 word comprehension: targeted with 70% accuracy and moderate cues. 02-23-25: Continue goal. 2-4 words with 70% accuracy with minimal cues. 2. Patient will complete reading comprehension tasks at the 5-7 word level with 90% accuracy and minimal cues. 08-23-24: Continue goal. Comprehension at the 5-7 word level: targeted through selecting the appropriate sentence to match pictures from a field of 2 sentences with 100% accuracy and a field of 3 sentences with 80% accuracy. 11-17-24: Comprehension at the 5-7 word level: targeted through reading sentence and task to select final word to complete sentence with max cues and 60% accuracy. Modified to 2 choices versus 4 choices to improved skills noted. 02-23-25: Continue goal. targeted through Aphasia therapy application with levels 6-9 90% accuracy with minimal/moderate cues. 3. Patient will complete visual scanning tasks to improve visual spatial skills with 90% accuracy and minimal cues. 08-23-24: range of 67-89% accuracy with increased time for task completion. 11-17-24: Goal met with 93% accuracy on 10-20-24. Target Visit [address] Problem 4 ST Problem #[address] Goal 1 Goal / Goal Update 1. Patient will complete automatic speech tasks with 90% accuracy. 08-23-24: targeted automatic speech phrase completion with single target word with 50-70% accuracy. 11-17-24: Continue goal. Automatic cues speech: targeted through phrase completion with single word with 60% accuracy and moderate cues. 02-23-25: Continue goal. 75% accuracy with moderate cues. Testing completed with score of 90% accuracy with moderate cues. 2. Patient will complete open ended cued speech tasks with 90% accuracy and minimal cues. 11-17-24: Continue goal. targeted through sentence completion with 50% accuracy and moderate cues. 02-23-25: Continue goal. 70% accuracy with moderate cues. 3. Patient will name items with 80% accuracy and moderate cues. 08-23-24: Continue goal. targeted through various pictures with use of phonemic cues, semantic cues and carrier phrases with 80% accuracy and max cues . Independently naming pictures targeted with 50% accuracy. 11-17-24: Continue goal. Item naming: targeted with 50% accuracy independently and 80% accuracy with moderate cues. Use of carrier phrases and phonemic cues. Confrontational naming testing completed this date 60% accuracy (previous testing was 30% accuracy). 02-23-25: Continue goal. Targeted through 1-2 syllable level with 40-50% accuracy independently, 90% accuracy with moderate cues. 4. Patient will imitate 3-4 word phrases with 80% accuracy and minimal cues. 08-23-24: Bi syllabic target words: 70% accuracy through imitation on first attempt and 100% accuracy with moderate cues. 11-17-24: targeted 2 word phrases with 70% accuracy and moderate/max cues. Patient independently imitated 4 phrases accurately without repetition needed. 02-23-25: Continue goal. 2-3 word phrases at the 1- 2 syllable level with 75% accuracy and moderate cues. 5. Patient will imitate bisyllabic words with 90% accuracy and minimal cues. 11-17-24: Continue goal. Bisyllabic words: 1st attempt targeted with 70% accuracy and 90% accuracy with moderate cues and repetition. 02-23-25: Continue goal. 1st attempt with 76% accuracy. NEW GOAL ADDED 02-23-25 1. Patient will utilize AAC device to communicate wants/needs/ideas during a structured conversational task on 4/5 opportunities with 90% accuracy and minimal cues. Target Visit 10 Progress Not Met
--- NOTE | 2025-02-28 11:57 | PCSTNOTE ---
Patient's called & cancelled scheduled appointment this date due to extreme fatigue.
--- NOTE | 2025-03-21 12:22 | BUOTOPEVAL ---
Assessment and note entered by Claire Curry, OT Evaluation Information Assessment Status Progress Diagnosis Malignant neoplasm of brain, unspecified ICD-10 Condition Codes (OT) Generalized muscle weakness M62.81 Onset 12/2023 Reported Pain Level Pain Score 0: Self Report Assessment OT Clinical Summary The patient demonstrates significant progress toward goals of completion of UE HEP, proprioception and body awareness of R UE during functional tasks, and UB strength leading to increased independence with cleaning at home and performing leisure tasks. The patient made minor progress toward visual neglect and visual field cut with good compensation, patient requires min verbal cues to attend to R side and utilize R hand as before required mod verbal cues. The patient demonstrates 33% accuracy with peripheral vision to L and 0% accuracy during assessment for R peripheral vision demonstrating continued visual field cut and deficits affecting focus during daily tasks. The patient demonstrates minimal progress in fine motor coordination with fine motor tasks continuing to be difficult. The patient requires continued OT services to address fine motor coordination, visual scanning, visual field cut/focus to R side, and strength and endurance of R UE needed to engage in self care and leisure activities to maintain good quality of life. He demonstrates good motivation and participation in therapy services and has potential for increased function and strength. Plan of Care Interventions Therapeutic Exercise,Neuro Re-education, Therapeutic Activities,Cognitive Function,Sensory Integrative Techniques,Self-Care/Home Management Interventions Therapeutic Exercise,Neuro Re-education, Therapeutic Activities,Cognitive Function,Sensory Integrative Techniques,Self-Care/Home Management OT Services Indicated Yes OT Services Indicated Yes Treatment Frequency and 1-2x/week for 10 visits. Duration These treatments will address the objective and functional deficits as defined above. The patient will be advanced safely and appropriately in order for the patient to progress towards his/her prior level of function. Additional exercises will be introduced and as well as a comprehensive home exercise program upon discharge, if needed, ?to ensure carryover of functional gains achieved in the clinic. This treatment plan has been reviewed and agreement upon by the patient.
--- NOTE | 2025-03-21 12:23 | OPREHPOC ---
Outpatient Therapy Plan of Care This is a Multidisciplinary Plan of Care that may contain components documented by all disciplines (PT, OT, and ST.) PT Problem 1 PT Problem #1 Knowledge Deficit PT Goal 1 Goal / Goal Update Patient to demonstrate independence with HEP Target Visit 4 Progress Partially Met PT Problem 2 PT Problem #2 Impaired Strength PT Goal 1 Goal / Goal Update Patient to demonstrate R hip and knee strength to 5/5 to improve ability to get up from low sitting surfaces Target Visit 8 Progress Partially Met PT Problem 3 PT Problem #3 Impaired Functional Mobility PT Goal 1 Goal / Goal Update 1. Patient to deny falls since start of PT POC - met 2. Patient to complete 5TSTS in <15 seconds to decrease fall risk -met 3. Patient to score 48/56 on Aly Balance to decrease fall risk -not met 4. Patient to complete 6 min walk test with no seated rest and completion of 1200' -met Target Visit 8 Progress Partially Met OT Problem 1 OT Problem #1 Knowledge Deficit OT Goal 1 Goal / Goal Update The patient will demonstrate 100% knowledge and return demonstration for UE and visual HEP in order to improve outcomes and function. PN 03/15/2025 PROGRESSING; CONTINUE Target Visit 10 Progress Partially Met OT Problem 2 OT Problem #2 Impaired Strength OT Goal 1 Goal / Goal Update The patient will demonstrate compensatory strategies and increased proprioceptive awareness of R UE during functional tasks through patient report or clinical observation for ability to clean his home. GOAL MET; DISCONTINUE; focus on fine motor coordination of R hand PN 03/15/2025 Patient reports that he has been doing things with his R hand more at home putting away dishes, mowing the lawn. Good accuracy for folding clothing while in clinic; main difficulties include fine motor and sensation of R hand during functional tasks Target Visit 10 Progress Not Met OT Problem 3 OT Problem #3 Impaired Coordination OT Goal 1 Goal / Goal Update The patient will demonstrate increased fine motor coordination by completing 9-hole peg test using R UE in <30 seconds in order to manipulate objects for ADLs for maximum level of independence. PN 03/15/2025 R UE: 44 seconds GOAL PROGRESSING; CONTINUE Target Visit 10 Progress Not Met OT Problem 4 OT Problem #4 Impaired Visual Perception OT Goal 1 Goal / Goal Update The patient will demonstrate minimal visual neglect and 100% understanding of use of compensation techniques in order to perform daily tasks safely and decrease risk of injury at home. PN 03/15/2025 Patient demonstrates moderate visual neglect and peripheral difficulties through counting fingers and locating objects out of central focus with 33% accuracy on L and 0% accuracy on R CONTINUE Target Visit 10 Progress Partially Met OT Goal 2 Goal / Goal Update The patient will increase executive functioning and visual scanning by performing sample of [place] Making Test Part A in <30 seconds with <2 mistakes and Trails B sample in <50 seconds with no cues in order to perform IADLs with increased safety. PN 03/15/2025 Trails A 3:50 seconds with 1 mistake Trails B sample 1:14 s Trails B assessment discontinued due to patient's increased difficulty with remembering the steps to the task upon reaching number 8 GOAL PROGRESSING; CONTINUE Target Visit 10 Progress Not Met OT Problem 5 OT Problem #5 Impaired Strength OT Goal 1 Goal / Goal Update Demonstrate R UE shoulder and elbow strength of 5/ 5 with normal UB endurance needed to perform daily tasks with no signs of fatigue. PN 03/15/2025 R shoulder flexion: 4+/5 R elbow flexion: 5/5 R elbow extension: 4+/5 Patient demonstrates minimally impaired endurance deficits of UB exercises GOAL PROGRESSING; CONTINUE Target Visit 10 OT Goal 2 Goal / Goal Update The patient will demonstrates increased visual attention to R visual field by engaging in visual exercises and activities with min verbal cues to locate items in peripheral field and to demonstrate good engagement in convergence/ divergence exercises in order to improve engagement with environment. PN NEW GOAL 03/15/2025 Patient requires moderate verbal cues and explanation for locating items outside of central focus: Finger counting: R 0% 0/3 trials at superior temporal and inferior temporal, L 33% 1/3 trials with correct at inferior temporal Locating things with centralized focus; patient was unable to point to objects therapist called out while patient maintained central focus on X approx 6 feet away from self ST Problem 1 ST Problem #[address] Goal 1 Goal / Goal Update 1. Patient will participate in home programming to improve carryover/generalization of skills to various environments. -family continues to demonstrated good carryover of tasks to patient's other environments to promote generalization of skills. Target Visit [address] Problem 2 ST Problem #[address] Goal 1 Goal / Goal Update 1. Patient will answer moderate/complex yes/no questions with 80% accuracy and minimal cues. 6--24: Continue goal. 90% accuracy with moderate level complexity. To target complex yes/no questions. 11-12-24: Continue goal. targeted through complex comparison questions with 70-90% accuracy and moderate cues. 11-17-24: Goal met with 82% accuracy and minimal/ moderate cues on 10-27-24. 2. Patient will follow 2 step directions with 80% accuracy and minimal cues. 03-14-24: Continue goal. 1 step directions with object manipulation: picker book and open it targeted with 90% accuracy. 1 step direction with 2 object manipulation: put the pencil in the cup targeted with 40% accuracy and max cues. 08-23-24: Continue goal. 2 step directions: 60% accuracy with moderate/max cues. 11-17-24: Goal met. 80% accuracy with minimal cues on 09-29-24. Target Visit [address] Problem 3 ST Problem #[address] Goal 1 Goal / Goal Update 1. Patient will complete 2-3 word comprehension tasks with and without pictures with 90% accuracy to improve comprehension skills. 08-23-24: Continue goal. 2-3 word comprehension: 70-90% accuracy with moderate cues. 11-17-24: Continue goal. 2-4 word comprehension: targeted with 70% accuracy and moderate cues. 02-23-25: Continue goal. 2-4 words with 70% accuracy with minimal cues. 2. Patient will complete reading comprehension tasks at the 5-7 word level with 90% accuracy and minimal cues. 08-23-24: Continue goal. Comprehension at the 5-7 word level: targeted through selecting the appropriate sentence to match pictures from a field of 2 sentences with 100% accuracy and a field of 3 sentences with 80% accuracy. 11-17-24: Comprehension at the 5-7 word level: targeted through reading sentence and task to select final word to complete sentence with max cues and 60% accuracy. Modified to 2 choices versus 4 choices to improved skills noted. 02-23-25: Continue goal. targeted through Aphasia therapy application with levels 6-9 90% accuracy with minimal/moderate cues. 3. Patient will complete visual scanning tasks to improve visual spatial skills with 90% accuracy and minimal cues. 08-23-24: range of 67-89% accuracy with increased time for task completion. 11-17-24: Goal met with 93% accuracy on 10-20-24. Target Visit [address] Problem [address] ST Problem #[address] Goal 1 Goal / Goal Update 1. Patient will complete automatic speech tasks with 90% accuracy. 08-23-24: targeted automatic speech phrase completion with single target word with 50-70% accuracy. 11-17-24: Continue goal. Automatic cues speech: targeted through phrase completion with single word with 60% accuracy and moderate cues. 02-23-25: Continue goal. 75% accuracy with moderate cues. Testing completed with score of 90% accuracy with moderate cues. 2. Patient will complete open ended cued speech tasks with 90% accuracy and minimal cues. 11-17-24: Continue goal. targeted through sentence completion with 50% accuracy and moderate cues. 02-23-25: Continue goal. 70% accuracy with moderate cues. 3. Patient will name items with 80% accuracy and moderate cues. 08-23-24: Continue goal. targeted through various pictures with use of phonemic cues, semantic cues and carrier phrases with 80% accuracy and max cues . Independently naming pictures targeted with 50% accuracy. 11-17-24: Continue goal. Item naming: targeted with 50% accuracy independently and 80% accuracy with moderate cues. Use of carrier phrases and phonemic cues. Confrontational naming testing completed this date 60% accuracy (previous testing was 30% accuracy). 02-23-25: Continue goal. Targeted through 1-2 syllable level with 40-50% accuracy independently, 90% accuracy with moderate cues. 4. Patient will imitate 3-4 word phrases with 80% accuracy and minimal cues. 08-23-24: Bi syllabic target words: 70% accuracy through imitation on first attempt and 100% accuracy with moderate cues. 11-17-24: targeted 2 word phrases with 70% accuracy and moderate/max cues. Patient independently imitated 4 phrases accurately without repetition needed. 02-23-25: Continue goal. 2-3 word phrases at the 1- 2 syllable level with 75% accuracy and moderate cues. 5. Patient will imitate bisyllabic words with 90% accuracy and minimal cues. 11-17-24: Continue goal. Bisyllabic words: 1st attempt targeted with 70% accuracy and 90% accuracy with moderate cues and repetition. 02-23-25: Continue goal. 1st attempt with 76% accuracy. NEW GOAL ADDED 02-23-25 1. Patient will utilize AAC device to communicate wants/needs/ideas during a structured conversational task on 4/5 opportunities with 90% accuracy and minimal cues. Target Visit 10 Progress Not Met
--- NOTE | 2025-03-28 12:10 | PCSTNOTE ---
Patient's called & cancelled scheduled appointment this date due to patient not feeling well.
--- NOTE | 2025-04-20 09:22 | PCSTNOTE ---
This treatment is being continued on visit number [id number]. Please see documentation on both accounts to view progress. Completed interventions, outcomes, and problems have been marked as Inactive to facilitate the copying of the Care plan routine for recurring accounts.
== END 2025-04-19 23:59 | disposition home or self-care (01) ==
LOC: CHSST 10:45
PROVIDERS: PCP Family Medicine; Visit Provider Family Medicine
DX: C71.9 Malignant neoplasm of brain, unspecified (principal)
CPT/HCPCS: 92507; 97110; 97112; 97530; 97535

== ENCOUNTER 2025-07-13 10:45 | Outpatient (RCR) | payer OTHER, SELFPAY ==
--- NOTE | 2025-04-20 09:25 | PCSTNOTE ---
The treatment documented on this account is a continuation of the treatment documented on visit number [id number]. Please see documentation on both accounts to view progress. The Plan of Care has been transitioned and updated within the new A#. I have addressed and agree with the discipline specific Problems, Interventions, and Goals for the current certification period. Completed interventions, outcomes, and problems have been marked as Inactive to facilitate the copying of the Care plan routine for recurring accounts.
--- NOTE | 2025-05-18 11:10 | STOPPROG ---
Assessment and note entered by Radhika Hart, DRAW STRING KNOTTER Evaluation Information Assessment Status Progress Diagnosis C71.9 Malignant Neoplasm of brain Other ICD-10 Condition Codes ( R47.01 Aphasia, I69.[address]) CVA Onset 12-14-23 Subjective Information Patient was referred for an ST evaluation due to concerns with severe Aphasia post CVA with craniectomy about one and a half years ago. The patient's reported that throughout the patient's hospital stay at [facility] and through rehab at [facility] she has continued to see improvements in his overall language skills. The patient will begin skilled OT treatment through [facility] to target vision and other neurological difficulties. 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 The patient often comprehends spoken language at the more simple level but struggles to communicate verbally when answer requires increased length over 1-2 words. When patient attempts to have a conversation with others he often gets lost due to; perseveration, semantic and phonemic paraphasia's, neologism, and jargon. This significantly impacts patient's ability to communicate want/needs/ideas resulting in frustration with communication breakdowns. Continued improvements have been noted in patient' s ability to understand language along with speaking level increasing to more 2-4 word utterances. The Mini-Mental State Examination was administered during the session with continued noted improvements from a score of 14/30 (severe cognitive impairment) on March of 2025 to 19/30 ( Mild cognitive impairment) on 05/18/25. Over the course of the past 12 months the patient has been utilizing an application called Aphasia Therapy on his iPad to target language comprehension, reading comprehension and verbal expression skills . Currently, the patient utilizes this application and recommended numbers application daily while at home to continue to improve overall language skills. The applications are frequently modified during treatment to better adapt and progress in patient's current level of communication. Exploration of the AAC device Touch Chat has been initiated with patient to determine if use at home will be beneficial for him. The patient has completed a total of [address] treatment sessions since the previous progress report written on 02-23-25. Recommendation for continued skilled ST treatment at this time to target Brocas /mixed non fluent aphasia to improve patient's cognitive-communication abilities. Assessment ST Clinical Summary Patient was referred for an ST evaluation due to significant difficulties with speech after CVA (12-14-23) due to Glioblastoma with craniectomy on . Prior to health event patient was working and was independent with all daily tasks/events with no reported health problems. He had no difficulty with speech/language skills and completed all tasks related to communication independently. He participated in therapy while at [facility] [place] and was then transferred to [facility] rehab and completed two weeks of therapy there. The patient completed chemo and radiation treatment in the middle of March of 2024. The patient began use of a cap to treat cancer that he wears continuously and along with intermittent rounds of chemo medication that has impacted his overall level of energy and ability to participate intermittently. The patient's reported that she has seen improvements in the patient's language comprehension skills but he continues to struggle to communicate simple ideas/wants/needs with frequent frustration during communication breakdown. The patient has completed a total of 10 skilled speech therapy sessions since the previous progress report written on 02-23-25. The patient continues to show progression in all areas of reading comprehension, verbal expression and speech skills. Testing was completed during the session on 02-23-25 with results below: Through the use of the [facility] Adult Language evaluation the patient has shown improvements in; Auditory comprehension-object identification, 2 step directions, complex directions and simple/ moderate complexity paragraph retention skills through the use of yes/no questions versus open ended questions Reading comprehension- letter recognition, single word comprehension, 3-4 and 5-7 word comprehension skills. Verbal expression- single word and phrase repetition, automatic cued speech, open ended cued speech and wh questions. Confrontational naming , object function, divergent naming were not completed due to time constraints and will be completed in the next session. Touch Chat AAC with word power- was introduced through a trial device with DRAW [employer]ING KNOTTER during the session with agreement in plan to explore for potential supplementation within conversation with others. In the past patient has been resistant to use of an AAC device to communicate but currently seems more open to the idea. Mini-Mental State Examination MMSE: score of 19/30 on 05-18-25 (mild cognitive impairment), previous testing 03-16-25 patient received a score of 14/30 ( severe cognitive impairment). Over the past 12 months the patient has participated in use of Aphasia Therapy application on iPad daily to continue to target language comprehension, reading comprehension and verbal expression skills. The patient continues to demonstrate significant difficulty using words in more complex phrases/sentences to communicate wants/needs/ideas resulting in frequent frustration with communication breakdowns. This impacts the patient's overall quality of life greatly along with a severe impact on the patient' s ability to communicate wants/needs/ideas and medical information/feelings. Recommendation for skilled ST treatment to continue to target aphasia R47.01, I69.911 Memory deficits following CVA as a result from C71.9 and I63.9 CVA. Recommendation for ST to target expressive and receptive language skills, reading comprehension, auditory comprehension skills and potential use of AAC device to assist in communication to improve his ability to communicate and attempt to return to prior level of function with least amount of assistance and reduction in frustration. Recommendation for ST 1x/week for 10 sessions. Plan of Care Interventions Treatment of Speech,Treatment of Language, Treatment for Cognitive Function ST Services Indicated Yes Treatment Frequency and 1x/week for 10 sessions Duration These treatments will address the objective and functional deficits as defined above. The patient will be advanced safely and appropriately in order for the patient to progress towards his/her prior level of function. Additional exercises will be introduced and as well as a comprehensive home exercise program upon discharge, if needed, ?to ensure carryover of functional gains achieved in the clinic. This treatment plan has been reviewed and agreement upon by the patient.
--- NOTE | 2025-05-18 11:11 | OPREHPOC ---
Outpatient Therapy Plan of Care This is a Multidisciplinary Plan of Care that may contain components documented by all disciplines (PT, OT, and ST.) PT Problem 1 PT Problem #1 Knowledge Deficit PT Goal 1 Goal / Goal Update Patient to demonstrate independence with HEP Target Visit 4 Progress Partially Met PT Problem 2 PT Problem #2 Impaired Strength PT Goal 1 Goal / Goal Update Patient to demonstrate R hip and knee strength to 5/5 to improve ability to get up from low sitting surfaces Target Visit 8 Progress Partially Met PT Problem 3 PT Problem #3 Impaired Functional Mobility PT Goal 1 Goal / Goal Update 1. Patient to deny falls since start of PT POC - met 2. Patient to complete 5TSTS in <15 seconds to decrease fall risk -met 3. Patient to score 48/56 on Aly Balance to decrease fall risk -not met 4. Patient to complete 6 min walk test with no seated rest and completion of 1200' -met Target Visit 8 Progress Partially Met OT Problem 1 OT Problem #1 Knowledge Deficit OT Goal 1 Goal / Goal Update The patient will demonstrate 100% knowledge and return demonstration for UE and visual HEP in order to improve outcomes and function. PN 03/15/2025 PROGRESSING; CONTINUE Target Visit 10 Progress Partially Met OT Problem 2 OT Problem #2 Impaired Strength OT Goal 1 Goal / Goal Update The patient will demonstrate compensatory strategies and increased proprioceptive awareness of R UE during functional tasks through patient report or clinical observation for ability to clean his home. GOAL MET; DISCONTINUE; focus on fine motor coordination of R hand PN 03/15/2025 Patient reports that he has been doing things with his R hand more at home putting away dishes, mowing the lawn. Good accuracy for folding clothing while in clinic; main difficulties include fine motor and sensation of R hand during functional tasks Target Visit 10 Progress Not Met OT Problem 3 OT Problem #3 Impaired Coordination OT Goal 1 Goal / Goal Update The patient will demonstrate increased fine motor coordination by completing 9-hole peg test using R UE in <30 seconds in order to manipulate objects for ADLs for maximum level of independence. PN 03/15/2025 R UE: 44 seconds GOAL PROGRESSING; CONTINUE Target Visit 10 Progress Not Met OT Problem 4 OT Problem #4 Impaired Visual Perception OT Goal 1 Goal / Goal Update The patient will demonstrate minimal visual neglect and 100% understanding of use of compensation techniques in order to perform daily tasks safely and decrease risk of injury at home. PN 03/15/2025 Patient demonstrates moderate visual neglect and peripheral difficulties through counting fingers and locating objects out of central focus with 33% accuracy on L and 0% accuracy on R CONTINUE Target Visit 10 Progress Partially Met OT Goal 2 Goal / Goal Update The patient will increase executive functioning and visual scanning by performing sample of [place] Making Test Part A in <30 seconds with <2 mistakes and Trails B sample in <50 seconds with no cues in order to perform IADLs with increased safety. PN 03/15/2025 Trails A 3:50 seconds with 1 mistake Trails B sample 1:14 s Trails B assessment discontinued due to patient's increased difficulty with remembering the steps to the task upon reaching number 8 GOAL PROGRESSING; CONTINUE Target Visit 10 Progress Not Met OT Problem 5 OT Problem #5 Impaired Strength OT Goal 1 Goal / Goal Update Demonstrate R UE shoulder and elbow strength of 5/ 5 with normal UB endurance needed to perform daily tasks with no signs of fatigue. PN 03/15/2025 R shoulder flexion: 4+/5 R elbow flexion: 5/5 R elbow extension: 4+/5 Patient demonstrates minimally impaired endurance deficits of UB exercises GOAL PROGRESSING; CONTINUE Target Visit 10 OT Goal 2 Goal / Goal Update The patient will demonstrates increased visual attention to R visual field by engaging in visual exercises and activities with min verbal cues to locate items in peripheral field and to demonstrate good engagement in convergence/ divergence exercises in order to improve engagement with environment. PN NEW GOAL 03/15/2025 Patient requires moderate verbal cues and explanation for locating items outside of central focus: Finger counting: R 0% 0/3 trials at superior temporal and inferior temporal, L 33% 1/3 trials with correct at inferior temporal Locating things with centralized focus; patient was unable to point to objects therapist called out while patient maintained central focus on X approx 6 feet away from self ST Problem 1 ST Problem #[address] Goal 1 Goal / Goal Update 1. Patient will participate in home programming to improve carryover/generalization of skills to various environments. -family continues to demonstrated good carryover of tasks to patient's other environments to promote generalization of skills. Target Visit [address] Problem 2 ST Problem #[address] Goal 1 Goal / Goal Update 1. Patient will complete 2-3 word comprehension tasks with and without pictures with 90% accuracy to improve comprehension skills. 08-23-24: Continue goal. 2-3 word comprehension: 70-90% accuracy with moderate cues. 11-17-24: Continue goal. 2-4 word comprehension: targeted with 70% accuracy and moderate cues. 02-23-25: Continue goal. 2-4 words with 70% accuracy with minimal cues. 05-18-25: Goal met with 100% accuracy and minimal to no cues. 2. Patient will complete reading comprehension tasks at the 5-7 word level with 90% accuracy and minimal cues. 11-17-24: Comprehension at the 5-7 word level: targeted through reading sentence and task to select final word to complete sentence with max cues and 60% accuracy. Modified to 2 choices versus 4 choices to improved skills noted. 02-23-25: Continue goal. targeted through Aphasia therapy application with levels 6-9 90% accuracy with minimal/moderate cues. 05-18-25: Continue goal. 80% accuracy with minimal cues. 3. Patient will complete number comprehension tasks with 90% accuracy and minimal cues. 05-18-25: Continue goal with 75% accuracy and minimal to moderate cues. NEW GOAL ADDED: 4. Patient will complete functional memory tasks through (reading simple paragraphs, recalling 3 words with slight delay in presentation, orientation questions) with 90% accuracy and minimal cues. Target Visit [address] Problem 3 ST Problem #[address] Goal 1 Goal / Goal Update 1. Patient will complete automatic speech tasks with 90% accuracy. 11-17-24: Continue goal. Automatic cues speech: targeted through phrase completion with single word with 60% accuracy and moderate cues. 02-23-25: Continue goal. 75% accuracy with moderate cues. Testing completed with score of 90% accuracy with moderate cues. 05-18-25: Continue goal with 75-80% accuracy and minimal to moderate cues. 2. Patient will complete open ended cued speech tasks with 90% accuracy and minimal cues. 11-17-24: Continue goal. targeted through sentence completion with 50% accuracy and moderate cues. 02-23-25: Continue goal. 70% accuracy with moderate cues. 05-18-25: Continue goal. 70-75% accuracy with moderate cues. 3. Patient will name items with 80% accuracy and moderate cues. 11-17-24: Continue goal. Item naming: targeted with 50% accuracy independently and 80% accuracy with moderate cues. Use of carrier phrases and phonemic cues. Confrontational naming testing completed this date 60% accuracy (previous testing was 30% accuracy). 02-23-25: Continue goal. Targeted through 1-2 syllable level with 40-50% accuracy independently, 90% accuracy with moderate cues. 05-18-25: Continue goal. 2 syllable level independently named 50-60% accuracy, 90% accuracy through moderate cues. 4. Patient will imitate 3-4 word phrases with 80% accuracy and minimal cues. 08-23-24: Bi syllabic target words: 70% accuracy through imitation on first attempt and 100% accuracy with moderate cues. 11-17-24: targeted 2 word phrases with 70% accuracy and moderate/max cues. Patient independently imitated 4 phrases accurately without repetition needed. 02-23-25: Continue goal. 2-3 word phrases at the 1- 2 syllable level with 75% accuracy and moderate cues. 05-18-25: Continue goal. 2-3 word phrases 2-3 syllable level 70% accuracy and moderate cues. 5. Patient will imitate bisyllabic words with 90% accuracy and minimal cues. 11-17-24: Continue goal. Bisyllabic words: 1st attempt targeted with 70% accuracy and 90% accuracy with moderate cues and repetition. 02-23-25: Continue goal. 1st attempt with 76% accuracy. 05-18-25: Goal met with 100% accuracy and minimal cues. 6. Patient will imitate numbers of varying length (ordinals, time, money) with 80% accuracy and minimal cues. 05-18-25: Continue goal with 80% accuracy and moderate cues. NEW GOAL ADDED 02-23-25 1. Patient will utilize AAC device to communicate wants/needs/ideas during a structured conversational task on 4/5 opportunities with 90% accuracy and minimal cues. 05-18-25: Continue goal with limited attempts to use AAC device to communicate thus far. Target Visit [address] Problem 4 ST Problem #[address] Goal 1 Goal / Goal Update 1. Patient will complete automatic speech tasks with 90% accuracy. 08-23-24: targeted automatic speech phrase completion with single target word with 50-70% accuracy. 11-17-24: Continue goal. Automatic cues speech: targeted through phrase completion with single word with 60% accuracy and moderate cues. 02-23-25: Continue goal. 75% accuracy with moderate cues. Testing completed with score of 90% accuracy with moderate cues. 2. Patient will complete open ended cued speech tasks with 90% accuracy and minimal cues. 11-17-24: Continue goal. targeted through sentence completion with 50% accuracy and moderate cues. 02-23-25: Continue goal. 70% accuracy with moderate cues. 3. Patient will name items with 80% accuracy and moderate cues. 08-23-24: Continue goal. targeted through various pictures with use of phonemic cues, semantic cues and carrier phrases with 80% accuracy and max cues . Independently naming pictures targeted with 50% accuracy. 11-17-24: Continue goal. Item naming: targeted with 50% accuracy independently and 80% accuracy with moderate cues. Use of carrier phrases and phonemic cues. Confrontational naming testing completed this date 60% accuracy (previous testing was 30% accuracy). 02-23-25: Continue goal. Targeted through 1-2 syllable level with 40-50% accuracy independently, 90% accuracy with moderate cues. 4. Patient will imitate 3-4 word phrases with 80% accuracy and minimal cues. 08-23-24: Bi syllabic target words: 70% accuracy through imitation on first attempt and 100% accuracy with moderate cues. 11-17-24: targeted 2 word phrases with 70% accuracy and moderate/max cues. Patient independently imitated 4 phrases accurately without repetition needed. 02-23-25: Continue goal. 2-3 word phrases at the 1- 2 syllable level with 75% accuracy and moderate cues. 5. Patient will imitate bisyllabic words with 90% accuracy and minimal cues. 11-17-24: Continue goal. Bisyllabic words: 1st attempt targeted with 70% accuracy and 90% accuracy with moderate cues and repetition. 02-23-25: Continue goal. 1st attempt with 76% accuracy. NEW GOAL ADDED 02-23-25 1. Patient will utilize AAC device to communicate wants/needs/ideas during a structured conversational task on 4/5 opportunities with 90% accuracy and minimal cues. Target Visit 10 Progress Not Met
--- NOTE | 2025-05-24 16:25 | OTOPDC ---
Assessment and note entered by Claire Curry, OT Evaluation Information Assessment Status Discharge Subjective Information The patient described to therapist that he has been trying to complete HEP and is motivated to continue with therapy. He reports he is willing to go to another location to continue to work toward goals and increase compensatory strategies for everyday life. Reported Pain Level Pain Score 0: Self Report Assessment OT Clinical Summary The patient demonstrates increased understanding of HEP for visual exercises including convergence/ divergence, saccades, and peripheral training activity with handout provided, increased UE strength with 5/5 muscle strength of R UE, minimally improved fine motor coordination of R hand, and improvement in executive function and visual scanning speed. He performed Trails A in 3: 21 with 2 mistakes at PN and 2:52 with no mistakes at discharge demonstrating increased visual tracking speed and focus. He performed Trails B sample at PN in 1:14 with 2 mistakes and at discharge performed in 45 seconds with no mistakes which demonstrates increased memory and executive function skills. The patient has shown good progress toward goals at this time and wants to continue to work toward visual deficits and learn more compensatory strategies to maximize his independence in everyday life. Due to therapist availability, the patient is to change locations for occupational therapy services. The patient has been educated on HEP and process for continuing therapy at another facility with good understanding reported. He demonstrates good potential for progress with occupational therapy services to maintain and achieve highest level of independence. Patient is discharged from this facility to be seen at another facility in different city. Plan of Care OT Services Indicated No
--- NOTE | 2025-05-24 16:25 | OPREHPOC ---
Outpatient Therapy Plan of Care This is a Multidisciplinary Plan of Care that may contain components documented by all disciplines (PT, OT, and ST.) PT Problem 1 PT Problem #1 Knowledge Deficit PT Goal 1 Goal / Goal Update Patient to demonstrate independence with HEP Target Visit 4 Progress Partially Met PT Problem 2 PT Problem #2 Impaired Strength PT Goal 1 Goal / Goal Update Patient to demonstrate R hip and knee strength to 5/5 to improve ability to get up from low sitting surfaces Target Visit 8 Progress Partially Met PT Problem 3 PT Problem #3 Impaired Functional Mobility PT Goal 1 Goal / Goal Update 1. Patient to deny falls since start of PT POC - met 2. Patient to complete 5TSTS in <15 seconds to decrease fall risk -met 3. Patient to score 48/56 on Aly Balance to decrease fall risk -not met 4. Patient to complete 6 min walk test with no seated rest and completion of 1200' -met Target Visit 8 Progress Partially Met OT Problem 1 OT Problem #1 Knowledge Deficit OT Goal 1 Goal / Goal Update The patient will demonstrate 100% knowledge and return demonstration for UE and visual HEP in order to improve outcomes and function. DISCHARGE; GOAL PARTIALLY MET 05/24/2025 Patient has been provided HEP for visual exercises and demonstrates the need for set up and verbal cues for the activities. Patient wants to continue to work on goals and do things independently at home. PN 03/15/2025 PROGRESSING; CONTINUE Target Visit 10 Progress Partially Met OT Problem 2 OT Problem #2 Impaired Strength OT Goal 1 Goal / Goal Update The patient will demonstrates increased visual attention to R visual field by engaging in visual exercises and activities with min verbal cues to locate items in peripheral field and to demonstrate good engagement in convergence/ divergence exercises in order to improve engagement with environment. DISCHARGE 05/24/2025 Patient requires moderate verbal cues for technique during visual exercises and to locate items in peripheral field, demonstrates good engagement in visual exercises. Finger countin% in superior and inferior temporal visual devries to patient's L side, 0% accuracy for superior and inferior temporal visual devries to patient's R side PN NEW GOAL 03/15/2025 Patient requires moderate verbal cues and explanation for locating items outside of central focus: Finger counting: R 0% 0/3 trials at superior temporal and inferior temporal, L 33% 1/3 trials with correct at inferior temporal Locating things with centralized focus; patient was unable to point to objects therapist called out while patient maintained central focus on X approx 6 feet away from self The patient will demonstrate compensatory strategies and increased proprioceptive awareness of R UE during functional tasks through patient report or clinical observation for ability to clean his home. Patient demonstrates good use of compensatory strategies for household tasks, continues to demonstrate some unsafe activities at home when performing yardwork due to decreased visual attention to R side, patient and family have been educated on use of compensatory strategy to ensure pond is to patient's L when engaging in yardwork. Target Visit 10 Progress Not Met OT Goal 2 Goal / Goal Update Demonstrate R UE shoulder and elbow strength of 5/ 5 with normal UB endurance needed to perform daily tasks with no signs of fatigue. GOAL MET; DISCONTINUE 05/24/2025 R shoulder flexion: 5/5 R elbow flexion: 5/5 R elbow extension: 5/5 OT Problem 3 OT Problem #3 Impaired Coordination OT Goal 1 Goal / Goal Update The patient will demonstrate increased fine motor coordination by completing 9-hole peg test using R UE in <30 seconds in order to manipulate objects for ADLs for maximum level of independence. DISCHARGE 05/24/2025 R UE: 42 seconds PN 03/15/2025 R UE: 44 seconds Target Visit 10 Progress Not Met OT Goal 2 Goal / Goal Update The patient will demonstrate minimal visual neglect and 100% understanding of use of compensation techniques in order to perform daily tasks safely and decrease risk of injury at home. DISCHARGE 05/24/2025 Patient demonstrates moderate visual neglect circling only Espinoza's on L of page in Espinoza's assessment in 3 minutes, patient demonstrates slow movement when working from L to R side, patient's selection of only 10 on L side could be due to decreased reaction speed PN 03/15/2025 Patient demonstrates moderate visual neglect and peripheral difficulties through counting fingers and locating objects out of central focus with 33% accuracy on L and 0% accuracy on R OT Problem 4 OT Problem #4 Impaired Visual Perception OT Goal 1 Goal / Goal Update The patient will increase executive functioning and visual scanning by performing sample of [place] Making Test Part A in <30 seconds with <2 mistakes and Trails B sample in <50 seconds with no cues in order to perform IADLs with increased safety. DISCHARGE; GOAL PARTIALLY MET; 05/24/2025 Trails A: 2:52 no mistakes Trails B practice: no mistakes 45 s Trails B: 2 mistakes, 1 verbal cue, discontinued at 8 PN 03/15/2025 Trails A 3:21 seconds with 1 mistake Trails B sample 1:14 s Trails B assessment discontinued due to patient's increased difficulty with remembering the steps to the task upon reaching number 8 Target Visit 10 Progress Partially Met OT Goal 2 Goal / Goal Update The patient will increase executive functioning and visual scanning by performing sample of [place] Making Test Part A in <30 seconds with <2 mistakes and Trails B sample in <50 seconds with no cues in order to perform IADLs with increased safety. PN 03/15/2025 Trails A 3:50 seconds with 1 mistake Trails B sample 1:14 s Trails B assessment discontinued due to patient's increased difficulty with remembering the steps to the task upon reaching number 8 GOAL PROGRESSING; CONTINUE Target Visit 10 Progress Not Met OT Problem 5 OT Problem #5 Impaired Strength OT Goal 1 Goal / Goal Update Demonstrate R UE shoulder and elbow strength of 5/ 5 with normal UB endurance needed to perform daily tasks with no signs of fatigue. PN 03/15/2025 R shoulder flexion: 4+/5 R elbow flexion: 5/5 R elbow extension: 4+/5 Patient demonstrates minimally impaired endurance deficits of UB exercises GOAL PROGRESSING; CONTINUE Target Visit 10 OT Goal 2 Goal / Goal Update The patient will demonstrates increased visual attention to R visual field by engaging in visual exercises and activities with min verbal cues to locate items in peripheral field and to demonstrate good engagement in convergence/ divergence exercises in order to improve engagement with environment. PN NEW GOAL 03/15/2025 Patient requires moderate verbal cues and explanation for locating items outside of central focus: Finger counting: R 0% 0/3 trials at superior temporal and inferior temporal, L 33% 1/3 trials with correct at inferior temporal Locating things with centralized focus; patient was unable to point to objects therapist called out while patient maintained central focus on X approx 6 feet away from self ST Problem 1 ST Problem #[address] Goal 1 Goal / Goal Update 1. Patient will participate in home programming to improve carryover/generalization of skills to various environments. -family continues to demonstrated good carryover of tasks to patient's other environments to promote generalization of skills. Target Visit [address] Problem 2 ST Problem #[address] Goal 1 Goal / Goal Update 1. Patient will complete 2-3 word comprehension tasks with and without pictures with 90% accuracy to improve comprehension skills. 08-23-24: Continue goal. 2-3 word comprehension: 70-90% accuracy with moderate cues. 11-17-24: Continue goal. 2-4 word comprehension: targeted with 70% accuracy and moderate cues. 02-23-25: Continue goal. 2-4 words with 70% accuracy with minimal cues. 05-18-25: Goal met with 100% accuracy and minimal to no cues. 2. Patient will complete reading comprehension tasks at the 5-7 word level with 90% accuracy and minimal cues. 11-17-24: Comprehension at the 5-7 word level: targeted through reading sentence and task to select final word to complete sentence with max cues and 60% accuracy. Modified to 2 choices versus 4 choices to improved skills noted. 02-23-25: Continue goal. targeted through Aphasia therapy application with levels 6-9 90% accuracy with minimal/moderate cues. 05-18-25: Continue goal. 80% accuracy with minimal cues. 3. Patient will complete number comprehension tasks with 90% accuracy and minimal cues. 05-18-25: Continue goal with 75% accuracy and minimal to moderate cues. NEW GOAL ADDED: 4. Patient will complete functional memory tasks through (reading simple paragraphs, recalling 3 words with slight delay in presentation, orientation questions) with 90% accuracy and minimal cues. Target Visit [address] Problem 3 ST Problem #[address] Goal 1 Goal / Goal Update 1. Patient will complete automatic speech tasks with 90% accuracy. 11-17-24: Continue goal. Automatic cues speech: targeted through phrase completion with single word with 60% accuracy and moderate cues. 02-23-25: Continue goal. 75% accuracy with moderate cues. Testing completed with score of 90% accuracy with moderate cues. 05-18-25: Continue goal with 75-80% accuracy and minimal to moderate cues. 2. Patient will complete open ended cued speech tasks with 90% accuracy and minimal cues. 11-17-24: Continue goal. targeted through sentence completion with 50% accuracy and moderate cues. 02-23-25: Continue goal. 70% accuracy with moderate cues. 05-18-25: Continue goal. 70-75% accuracy with moderate cues. 3. Patient will name items with 80% accuracy and moderate cues. 11-17-24: Continue goal. Item naming: targeted with 50% accuracy independently and 80% accuracy with moderate cues. Use of carrier phrases and phonemic cues. Confrontational naming testing completed this date 60% accuracy (previous testing was 30% accuracy). 02-23-25: Continue goal. Targeted through 1-2 syllable level with 40-50% accuracy independently, 90% accuracy with moderate cues. 05-18-25: Continue goal. 2 syllable level independently named 50-60% accuracy, 90% accuracy through moderate cues. 4. Patient will imitate 3-4 word phrases with 80% accuracy and minimal cues. 08-23-24: Bi syllabic target words: 70% accuracy through imitation on first attempt and 100% accuracy with moderate cues. 11-17-24: targeted 2 word phrases with 70% accuracy and moderate/max cues. Patient independently imitated 4 phrases accurately without repetition needed. 02-23-25: Continue goal. 2-3 word phrases at the 1- 2 syllable level with 75% accuracy and moderate cues. 05-18-25: Continue goal. 2-3 word phrases 2-3 syllable level 70% accuracy and moderate cues. 5. Patient will imitate bisyllabic words with 90% accuracy and minimal cues. 11-17-24: Continue goal. Bisyllabic words: 1st attempt targeted with 70% accuracy and 90% accuracy with moderate cues and repetition. 02-23-25: Continue goal. 1st attempt with 76% accuracy. 05-18-25: Goal met with 100% accuracy and minimal cues. 6. Patient will imitate numbers of varying length (ordinals, time, money) with 80% accuracy and minimal cues. 05-18-25: Continue goal with 80% accuracy and moderate cues. NEW GOAL ADDED 02-23-25 1. Patient will utilize AAC device to communicate wants/needs/ideas during a structured conversational task on 4/5 opportunities with 90% accuracy and minimal cues. 05-18-25: Continue goal with limited attempts to use AAC device to communicate thus far. Target Visit [address] Problem 4 ST Problem #[address] Goal 1 Goal / Goal Update 1. Patient will complete automatic speech tasks with 90% accuracy. 08-23-24: targeted automatic speech phrase completion with single target word with 50-70% accuracy. 11-17-24: Continue goal. Automatic cues speech: targeted through phrase completion with single word with 60% accuracy and moderate cues. 02-23-25: Continue goal. 75% accuracy with moderate cues. Testing completed with score of 90% accuracy with moderate cues. 2. Patient will complete open ended cued speech tasks with 90% accuracy and minimal cues. 11-17-24: Continue goal. targeted through sentence completion with 50% accuracy and moderate cues. 02-23-25: Continue goal. 70% accuracy with moderate cues. 3. Patient will name items with 80% accuracy and moderate cues. 08-23-24: Continue goal. targeted through various pictures with use of phonemic cues, semantic cues and carrier phrases with 80% accuracy and max cues . Independently naming pictures targeted with 50% accuracy. 11-17-24: Continue goal. Item naming: targeted with 50% accuracy independently and 80% accuracy with moderate cues. Use of carrier phrases and phonemic cues. Confrontational naming testing completed this date 60% accuracy (previous testing was 30% accuracy). 02-23-25: Continue goal. Targeted through 1-2 syllable level with 40-50% accuracy independently, 90% accuracy with moderate cues. 4. Patient will imitate 3-4 word phrases with 80% accuracy and minimal cues. 08-23-24: Bi syllabic target words: 70% accuracy through imitation on first attempt and 100% accuracy with moderate cues. 11-17-24: targeted 2 word phrases with 70% accuracy and moderate/max cues. Patient independently imitated 4 phrases accurately without repetition needed. 02-23-25: Continue goal. 2-3 word phrases at the 1- 2 syllable level with 75% accuracy and moderate cues. 5. Patient will imitate bisyllabic words with 90% accuracy and minimal cues. 11-17-24: Continue goal. Bisyllabic words: 1st attempt targeted with 70% accuracy and 90% accuracy with moderate cues and repetition. 02-23-25: Continue goal. 1st attempt with 76% accuracy. NEW GOAL ADDED 02-23-25 1. Patient will utilize AAC device to communicate wants/needs/ideas during a structured conversational task on 4/5 opportunities with 90% accuracy and minimal cues. Target Visit 10 Progress Not Met
--- NOTE | 2025-07-20 16:52 | PCSTNOTE ---
This treatment is being continued on visit number [id number]. Please see documentation on both accounts to view progress. Completed interventions, outcomes, and problems have been marked as Inactive to facilitate the copying of the Care plan routine for recurring accounts.
== END 2025-07-19 23:59 | disposition home or self-care (01) ==
LOC: CHSST 10:45
PROVIDERS: PCP Family Medicine; Visit Provider Family Medicine
DX: C71.9 Malignant neoplasm of brain, unspecified (principal); M62.81 Muscle weakness (generalized)
CPT/HCPCS: 92507; 97112; 97129; 97530; 97535